=== PATIENT | male | born 1960 | race Caucasian/White ===

== ENCOUNTER → 2024-09-16 13:30 | Outpatient (CLI) | payer MEDICARE, SELFPAY | PROVIDERS: Visit Provider Student in an Organized Health Care Education/Training Program | DX: R30.0 Dysuria (principal) | CPT/HCPCS: 87086 ==

== ENCOUNTER 2024-09-16 14:31 | Emergency (ER) | payer MEDICARE, SELFPAY ==
[2024-09-16 14:53] VITALS: BP 144/74; PULSE 86; RESP 16; TEMP 36.6; O2SAT 95; BMI 37.3
--- NOTE | 2024-09-16 15:03 | PC.NURSE ---
Comes to ED reporting having trouble urinating. no prostate problems that he knows of. pt is refusing conversation of moser catheter in triage. Education has been given in regard to perforated bowel and prostate health. Pt reports he did a colon cleanse for colonoscopy last week and was refused the morning of procedure for urinary retention in which he refused catheter. Was advised he could have bowel perforation if procedure perfomred. Was DC'd AMA and told to come to ED, instead, went home. Reports he has not urinated fully in over a week. Continues to push fluids in hopes it will resolve itself. Advised there is a minimally painless way to help him feel better with lido jelly and cath placement. pt adamantly refused multiple times. States he is going to leave. advised to return if he wants help.
== END 2024-09-16 15:08 | disposition left against medical advice (07) ==
PROVIDERS: Emergency Provider Emergency Medicine; PCP Physician Assistant
DX: R33.9 Retention of urine, unspecified (principal)
CPT/HCPCS: 87086; 99281

== ENCOUNTER 2024-10-14 18:08 | Inpatient (IN) | payer MEDICARE, SELFPAY ==
[2024-10-14] VITALS (12 sets, daily range): BP systolic 133–186; BP diastolic 74–103; PULSE 91–110; RESP 16–19; TEMP 36.6; O2SAT 94–100; BMI 35.9
--- NOTE | 2024-10-14 19:48 | ED_ITS ---
HPI - Male Genitourinary General Chief complaint: Urogenital-Male Stated complaint: Bladder Leakage t-2 weeks Time Seen by Provider: 10/14/24 19:03 History of Present Illness HPI Narrative: 64 year old male with history of schizophrenia presents by EMS from home for ?leaky bladder?. Patient apparently told triage that symptoms have been going on for 2 weeks, however in the exam room patient tells me that this has been present for at least 5 weeks. He has been wearing a plastic garbage bag over his underwear as he states that he can not control his urination and feels like he can never fully void his bladder. He has not followed up with either a primary care doctor or a specialist for this problem because ?I can not go anywhere?. Denies previous history of bladder or prostate problems. Denies use of blood thinners. Related Data Home Medications Medication Instructions Recorded Confirmed benztropine 0.5 mg tablet 0.5 mg PO QDAY #0 tabs 05/13/16 olanzapine 20 mg tablet (Zyprexa) 20 mg PO HS #0 tabs 05/13/16 10/14/24 hydrochlorothiazide 25 mg tablet 25 mg PO DAILY 09/16/24 10/14/24 lovastatin 40 mg tablet 40 mg PO DAILY 09/16/24 10/14/24 venlafaxine 75 mg capsule,extended 75 mg PO DAILY 09/16/24 10/14/24 release 24 hr Allergies Allergy/AdvReac Type Severity Reaction Status Date / Time morphine [MORPHINE] Allergy Intermediate FACIAL Unverified 01/06/18 11:49 BLISTERING, FEVER Patient History Medical History No active medical problems Exam Initial Vital Signs Initial Vital Signs: Vital Signs Temperature 97.9 F 10/14/24 18:09 Pulse Rate 110 H 10/14/24 18:09 Respiratory Rate 16 10/14/24 18:09 Blood Pressure 133/84 10/14/24 18:09 Pulse Oximetry 96 10/14/24 18:09 Oxygen Delivery Method Room Air 10/14/24 18:09 Const: Awake, alert, no acute distress, appears chronically unwell Cardiac: regular rate, regular rhythm RESP: unlabored, clear bilaterally, no wheezing GI: Soft, periumbilical hernia soft. Minimal lower abdominal distension : penis normal, no hernias, no masses Skin: Warm, Dry, intact, no rashes Neuro: AO x3, CN II-XII grossly intact, moves all extremities Course Orders Ordered: ED Orders 10/14/24 19:53 CBC Auto Diff [Complete Blood Count AUTO DIFF] Stat CMP [Comprehensive Metabolic Panel] Stat 10/14/24 23:10 CT abdomen pelvis wo con Stat 10/14/24 23:33 BMP [Basic Metabolic Panel] Stat 10/15/24 01:58 HH [Hemoglobin and Hematocrit] Stat 10/15/24 02:33 UA Complete [Urinalysis and Microscopic] Stat Discontinued Medications Acetaminophen (Acetaminophen 325 Mg Tablet) 975 mg PO NOW ONE Stop: 10/14/24 23:11 Last Admin: 10/14/24 23:29 Dose: 975 mg Documented By: ELKE Fentanyl (Fentanyl 100 Mcg/2 Ml Inj) 50 mcg IV NOW ONE Stop: 10/15/24 00:15 Last Admin: 10/15/24 00:24 Dose: 50 mcg Documented By: ELKE Sodium Chloride (Normal Saline 0.9%) 1,000 mls @ 1,000 mls/hr IV BOLUS ONE Stop: 10/15/24 01:03 Last Infusion: 10/15/24 01:29 Dose: Infused Documented By: Admin: 10/15/24 00:24 Dose: 1,000 mls/hr Documented By: ELKE Lidocaine HCl (Lidocaine 2% (Glydo) 6 Ml Gel) 6 ml TOP NOW ONE Stop: 10/14/24 19:58 Last Admin: 10/14/24 20:05 Dose: 6 ml Documented By: PADMINI Vital Signs Vital signs: Vital Signs - 8 hr 10/14/24 20:28 10/14/24 20:28 10/14/24 20:30 Pulse Rate 100 H 94 H Respiratory Rate Blood Pressure 163/96 H Pulse Oximetry 99 98 Oxygen Delivery Method 10/14/24 20:30 10/14/24 21:00 10/14/24 21:00 Pulse Rate 92 H Respiratory Rate Blood Pressure 162/82 H 162/89 H Pulse Oximetry 99 Oxygen Delivery Method 10/14/24 21:30 10/14/24 21:30 10/14/24 22:00 Pulse Rate 91 H 92 H Respiratory Rate 18 Blood Pressure 167/87 H Pulse Oximetry 100 99 Oxygen Delivery Method 10/14/24 22:00 10/14/24 22:29 10/14/24 22:30 Pulse Rate 94 H Respiratory Rate Blood Pressure 186/98 H 176/103 H Pulse Oximetry 100 Oxygen Delivery Method 10/14/24 22:31 10/14/24 23:00 10/14/24 23:00 Pulse Rate 97 H 99 H Respiratory Rate 19 Blood Pressure 166/90 H Pulse Oximetry 100 99 Oxygen Delivery Method 10/14/24 23:30 10/14/24 23:43 10/14/24 23:43 Pulse Rate 99 H 99 H Respiratory Rate 18 Blood Pressure 154/74 H Pulse Oximetry 99 94 Oxygen Delivery Method Room Air 10/15/24 00:00 10/15/24 00:00 10/15/24 00:30 Pulse Rate 103 H Respiratory Rate 20 Blood Pressure 167/96 H 151/81 H Pulse Oximetry 99 Oxygen Delivery Method Room Air 10/15/24 00:30 10/15/24 01:00 10/15/24 01:00 Pulse Rate 96 H 90 Respiratory Rate 16 16 Blood Pressure 167/84 H Pulse Oximetry 98 98 Oxygen Delivery Method Room Air Room Air 10/15/24 01:30 10/15/24 01:30 Pulse Rate 98 H Respiratory Rate 16 Blood Pressure 161/84 H Pulse Oximetry 99 Oxygen Delivery Method Room Air MDM - Male Genitourinary Differential Diagnosis Differential diagnosis: Likely urinary tract infection, acute retention of urine and inguinal hernia Lab Data 10/15/24 01:58 10/14/24 23:33 Labs: Lab Results 10/14/24 10/14/24 10/15/24 Range/Units 19:53 23:33 01:58 WBC 8.4 (4.5-11.0) X10^3/uL RBC 4.58 (4.5-5.9) X10^6/uL Hgb 14.3 13.3 L (13.5-17.5) g/dL Hct 41.5 39.4 L (41-53) % MCV 90.7 (80-100) fL MCH 31.2 (26-34) PG MCHC 34.4 (30-36) % RDW 13.7 (11.6-14.8) % Plt Count 251 (150-400) X10^3/uL Neut % (Auto) 75.5 H (50-75) % Lymph % (Auto) 12.6 L (25-40) % [place] % (Auto) 10.2 (3-14) % Eos % (Auto) 0.9 L (2-4) % Baso % (Auto) 0.8 (0-2) % Neut # (Auto) 6300 (0792-3608) /uL Lymph # (Auto) 1100 (3830-6577) /uL [place] # (Auto) 900 (0-900) /uL Eos # (Auto) 100 (0-450) /uL Baso # (Auto) 100 (0-100) /uL Sodium 138 136 L (137-145) mmol/L Potassium 4.5 4.0 (3.4-5.1) mmol/L Chloride 102 103 (98-107) mmol/L Carbon Dioxide 26 26 (22-32) mmol/L BUN 69 H 61 H (9-20) mg/dL Creatinine 2.72 H 2.16 H (0.66-1.25) mg/dL Estimated GFR 25 L 33 L (>60) mL/min BUN/Creatinine Ratio 25.4 H 28.2 H (6-22) Glucose 117 H 117 H (80-110) mg/dL Calcium 9.4 9.1 (8.4-10.2) mg/dL Total Bilirubin 0.5 (0.2-1.3) mg/dL AST 30 (17-59) IU/L ALT 26 (<50) IU/L Alkaline Phosphatase 122 (38-126) U/L Total Protein 8.4 H (6.3-8.2) g/dL Albumin 4.5 (3.5-5.0) g/dL Globulin 3.9 (1.7-4.1) g/dL Albumin/Globulin Ratio 1.2 (1.0-2.8) Imaging Data CT scan - abdomen/pelvis: Radiologist's Impression: PROCEDURE: CT ABDOMEN PELVIS WO CON INDICATIONS: HEMATURIA, URINARY RETENTION TECHNIQUE: Axial sections were acquired from the lung bases to the pubic symphysis. Coronal and sagittal reformats were performed. For radiation dose reduction, the following was used: automated exposure control, adjustment of mA and/or kV according to patient size. COMPARISON: None. FINDINGS: Image quality: Diagnostic. Lower Chest: Lung bases are clear. Small hiatal hernia. Heart size is normal. URINARY: Kidney/ureter: There is mild bilateral hydronephrosis and hydroureter without significant periureteral perinephric stranding. No distal obstructing stone. No renal stones identified. There is a 1.9 cm right renal cyst. Bladder: Urinary bladder is decompressed by Tyler catheter. Locules of air in the anti dependent portions of the urinary bladder likely from Tyler catheter placement. There is mild circumferential wall thickening of the urinary bladder more pronounced than expected for degree of decompression. Mild perivesicular stranding. The prostate gland appears mildly enlarged. ABDOMEN: Liver: No contour-deforming solid mass. Gallbladder: No radiopaque gallstones or wall thickening. Biliary ducts: No biliary dilation. Pancreas: No ductal dilation. Spleen: Size is within normal limits. Adrenal Glands: No discrete adrenal nodules. Stomach and Bowel: Normal colonic caliber, without significant wall thickening. No evidence for small bowel obstruction or associated inflammatory changes. Normal appendix. Peritoneum: No abnormal intraperitoneal fluid. No free air. Ventral Wall: There is a moderate-sized umbilical hernia measuring approximately 3.7 cm at the neck. Hernia contains segment of small bowel and peritoneal fat without evidence for obstruction proximally or acute inflammatory changes. Abdominal Nodes: No enlarged retroperitoneal or mesenteric lymph nodes. Vessels: Aorta and inferior vena cava are normal in size. Atherosclerotic calcifications. PELVIS: Pelvic Organs: Mild prostatomegaly. Pelvic Nodes: Unremarkable. Miscellaneous: No inguinal hernias are seen. Bones: No acute vertebral body compression fractures. Multilevel spondylitic changes throughout the imaged spine. No suspicious osseous lesions. IMPRESSION: Mild bilateral hydroureteronephrosis without significant perinephric or periureteral stranding. No evidence for distal obstructing stones or mass lesions. The urinary bladder is decompressed by Tyler catheter with greater than expected circumferential urinary bladder wall thickening for degree of bladder distension. There is also mild perivesicular stranding. Air within the urinary bladder likely from Tyler catheter placement. Overall, findings may represent cystitis versus sequela of chronic urinary bladder outlet obstruction syndrome. Fat and small bowel containing umbilical hernia without evidence for acute inflammatory changes or obstruction proximally. Other chronic findings as above. Dictated by: Demarcus Whalen M.D. on 10/14/2024 at 23:49 Approved by: Demarcus Whalen M.D. on 10/14/2024 at 23:58 MDM Narrative Medical decision making narrative: Nontoxic patient presenting for urinary retention, accounts very in chronicity, but this has been going on for at least several weeks per patient report. Abdomen mildly distended, nontender to palpation. Laboratory work is reviewed, WBC count 8.4, hemoglobin 14.3, platelet count 251, sodium 138, potassium 4.5, creatinine 2.72, normal liver enzymes. There are no recent priors for comparison, last blood work on file does not include a creatinine and it was from the year 2019. Nursing staff informed me that while initial urine output was 2L of clear and yellow patient began to have bleeding with clots present. Despite several irrigation attempts the urine remained dark red. Three-way Tyler ordered for irrigation and CT ordered for assessment. Repeat creatinine after drainage of urine shows improvement. Patient not acidotic at this time. CT notable for findings consistent with cystitis versus sequela of chronic urinary bladder outlet obstruction syndrome. With the volume of urine drained from the bladder suspect chronic outlet obstruction syndrome. Despite 3 x 3 L irrigation bags of sterile water patient still has reddish urine coming out. Case discussed with Dr. Talavera of Urology, who states that this is commonly seen after chronic retention and is due to microvascular petechiae from an over stretch bladder. This normally resolves after a short course of irrigation and does not need transfer. Case discussed with Dr. Leach of telehospitalist services, who will admit patient for further treatment. Discharge Plan Departure Patient Disposition: Admitted as Observation Clinical Impression: Acute retention of urine Prescriptions: No Action hydrochlorothiazide 25 mg tablet 25 mg PO DAILY venlafaxine 75 mg capsule,extended release 24hr 75 mg PO DAILY lovastatin 40 mg tablet 40 mg PO DAILY olanzapine [Zyprexa] 20 MG tablet 20 mg PO HS Qty: 0 benztropine 0.5 MG tablet 0.5 mg PO QDAY Qty: 0 Referrals: Lulu Zamarripa PA-C [Primary Care Provider] - Admit Date/Time: 10/15/24 02:35 Admit Provider: Gilmer Hanna
[2024-10-14 20:01] LABS: Add Manual Diff / Slide Review NO; Basophils Absolute Auto 100 /uL (0-100); Basophils Percent Auto 0.8 % (0-2); Eosinophils Absolute Auto 100 /uL (0-450); Eosinophils Percent Auto 0.9 % (2-4); Hematocrit 41.5 % (41-53); Hemoglobin 14.3 g/dL (13.5-17.5); Lymphocytes Absolute Auto 1100 /uL (1100-4500); Lymphocytes Percent Auto 12.6 % (25-40); Mean Corpuscular HGB Conc 34.4 % (30-36); Mean Corpuscular Hemoglobin 31.2 PG (26-34); Mean Corpuscular Volume 90.7 fL (80-100); Monocytes Absolute Auto 900 /uL (0-900); Monocytes Percent Auto 10.2 % (3-14); Neutrophils Absolute Auto 6300 /uL (1500-7000); Neutrophils Percent Auto 75.5 % (50-75); Platelet Count 251 X10^3/uL (150-400); Red Blood Cell Count 4.58 X10^6/uL (4.5-5.9); Red Cell Distribution Width 13.7 % (11.6-14.8); White Blood Cell Count 8.4 X10^3/uL (4.5-11.0)
[2024-10-14] MEDS: LIDOCAINE 2% (GLYDO) 6 ML GEL TOP (20:05)
[2024-10-14 20:16] LABS: Alanine Aminotransferase 26 IU/L (<50); Albumin 4.5 g/dL (3.5-5.0); Albumin Globulin Ratio 1.2 (1.0-2.8); Alkaline Phosphatase 122 U/L (38-126); Aspartate Aminotransferase 30 IU/L (17-59); BUN Creatinine Ratio 25.4 (6-22); Bilirubin Total 0.5 mg/dL (0.2-1.3); Blood Urea Nitrogen 69 mg/dL (9-20); Calcium 9.4 mg/dL (8.4-10.2); Carbon Dioxide 26 mmol/L (22-32); Chloride 102 mmol/L (98-107); Estimated Glomerular Filt Rate 25 mL/min (>60); Globulin 3.9 g/dL (1.7-4.1); Glucose 117 mg/dL (80-110); HEMOLYSIS < 15 (0-50); Potassium 4.5 mmol/L (3.4-5.1); Sodium 138 mmol/L (137-145); Total Protein 8.4 g/dL (6.3-8.2)
--- NOTE | 2024-10-14 20:35 | PC.NURSE ---
Patient here in department because they have been unable to pee besides a dribble for the past two weeks. bladder scanned patient and found their to be >999cc, got verbal order from Dr Summers to place moser catheter. Catheter placed successfully, patient handled well, drained 2000cc within couple minutes, clamped the moser catheter to avoid hypotension. Patient was also complaining of intense cramping. blood pressure maintained at 162/82
--- NOTE | 2024-10-14 21:30 | PC.NURSE ---
Some blood was noted in the urine and catheter was no longer draining, Dr Summers okayed some irrigation. Instilled around 200cc and got 200cc out, small blood clots noted in the urine. Patient reports theyre having pain in my penis
--- NOTE | 2024-10-14 23:10 | DI.CT.S_ITS ---
PROCEDURE: CT ABDOMEN PELVIS WO CON INDICATIONS: HEMATURIA, URINARY RETENTION TECHNIQUE: Axial sections were acquired from the lung bases to the pubic symphysis. Coronal and sagittal reformats were performed. For radiation dose reduction, the following was used: automated exposure control, adjustment of mA and/or kV according to patient size. COMPARISON: None. FINDINGS: Image quality: Diagnostic. Lower Chest: Lung bases are clear. Small hiatal hernia. Heart size is normal. URINARY: Kidney/ureter: There is mild bilateral hydronephrosis and hydroureter without significant periureteral perinephric stranding. No distal obstructing stone. No renal stones identified. There is a 1.9 cm right renal cyst. Bladder: Urinary bladder is decompressed by Tyler catheter. Locules of air in the anti dependent portions of the urinary bladder likely from Tyler catheter placement. There is mild circumferential wall thickening of the urinary bladder more pronounced than expected for degree of decompression. Mild perivesicular stranding. The prostate gland appears mildly enlarged. ABDOMEN: Liver: No contour-deforming solid mass. Gallbladder: No radiopaque gallstones or wall thickening. Biliary ducts: No biliary dilation. Pancreas: No ductal dilation. Spleen: Size is within normal limits. Adrenal Glands: No discrete adrenal nodules. Stomach and Bowel: Normal colonic caliber, without significant wall thickening. No evidence for small bowel obstruction or associated inflammatory changes. Normal appendix. Peritoneum: No abnormal intraperitoneal fluid. No free air. Ventral Wall: There is a moderate-sized umbilical hernia measuring approximately 3.7 cm at the neck. Hernia contains segment of small bowel and peritoneal fat without evidence for obstruction proximally or acute inflammatory changes. Abdominal Nodes: No enlarged retroperitoneal or mesenteric lymph nodes. Vessels: Aorta and inferior vena cava are normal in size. Atherosclerotic calcifications. PELVIS: Pelvic Organs: Mild prostatomegaly. Pelvic Nodes: Unremarkable. Miscellaneous: No inguinal hernias are seen. Bones: No acute vertebral body compression fractures. Multilevel spondylitic changes throughout the imaged spine. No suspicious osseous lesions. IMPRESSION: Mild bilateral hydroureteronephrosis without significant perinephric or periureteral stranding. No evidence for distal obstructing stones or mass lesions. The urinary bladder is decompressed by Tyler catheter with greater than expected circumferential urinary bladder wall thickening for degree of bladder distension. There is also mild perivesicular stranding. Air within the urinary bladder likely from Tyler catheter placement. Overall, findings may represent cystitis versus sequela of chronic urinary bladder outlet obstruction syndrome. Fat and small bowel containing umbilical hernia without evidence for acute inflammatory changes or obstruction proximally. Other chronic findings as above. Dictated by: Demarcus Whalen M.D. on 10/14/2024 at 23:49 Approved by: Demarcus Whalen M.D. on 10/14/2024 at 23:58
[2024-10-14] MEDS: ACETAMINOPHEN 325 MG TABLET 975 MG PO (23:29)
--- NOTE | 2024-10-14 23:34 | PC.NURSE ---
Labs drawn from existing IV line without complication. Pt taken to imaging via ED stretcher with technician support association.
[2024-10-14 23:49] LABS: BUN Creatinine Ratio 28.2 (6-22); Blood Urea Nitrogen 61 mg/dL (9-20); Calcium 9.1 mg/dL (8.4-10.2); Carbon Dioxide 26 mmol/L (22-32); Chloride 103 mmol/L (98-107); Estimated Glomerular Filt Rate 33 mL/min (>60); Glucose 117 mg/dL (80-110); HEMOLYSIS 31 (0-50); Sodium 136 mmol/L (137-145)
[2024-10-15] VITALS (11 sets, daily range): BP systolic 112–167; BP diastolic 46–100; PULSE 90–104; RESP 16–20; TEMP 36.4–36.7; O2SAT 97–99; BMI 35.9
--- NOTE | 2024-10-15 00:15 | PC.NURSE ---
Change of indwelling urinary catheter d/t need for CBI. Difficult catheter insertion completed by Dr. Summers. CBI started at this time.
[2024-10-15] MEDS: SODIUM CHLORIDE 0.9% 1,000 ML 1000 ML IV (00:24)
[2024-10-15] MEDS: fentaNYL 100 MCG/2 ML INJ 50 MCG IV (00:24)
--- NOTE | 2024-10-15 01:47 | PC.NURSE ---
Indwelling urinary catheter drainage remains dark pink with clots. CBI clamped at this time per Dr. Summers.
--- NOTE | 2024-10-15 01:59 | PC.NURSE ---
Repeat H&H drawn from existing IV line without difficulty.
[2024-10-15 02:04] LABS: Hematocrit 39.4 % (41-53); Hemoglobin 13.3 g/dL (13.5-17.5)
--- NOTE | 2024-10-15 02:14 | PC.NURSE ---
Small amount of dark red urine noted in catheter tubing at this time. CBI restarted with clamp at 09/29 causing a medium drip irrigation. Pt coughed and a large clot empied into catheter tubing followed by dark red urine. Dr. Summers made aware.
--- NOTE | 2024-10-15 03:05 | P.HP_ITS ---
History of Present Illness History of Present Illness Date Patient Seen: 10/15/24 Chief complaint: Difficulty voiding, urine incontinence Narrative: 64 y/o with PMH of schizophrenia, on Zyprexa and Effexor, HTN - on HCTZ and HLD - on statin, who came to ED with evidence of chronic bladder outlet obstruction. He has difficulty voiding since few weeks or even months ago and lately he developed overflow incontinence. CT showing b/l mild hydronephrosis. After placed Tyler and bladder decompression by draining 2 L of urine, he developed bleed from overly stretched bladder vessels. Started irrigation in the ER, discussed with urology at , postdecompression bleed that should subside, no need for transfer. Labs with NETO. Without evidence of UTI. Placed in observation for post-decompressive hematuria. Once cleared he can discharge with Tyler with scheduled urology follow up [facility] Medical History No active medical problems Meds Home Medications and Allergies Home Medications Medication Instructions Recorded Confirmed Type olanzapine 20 mg tablet (Zyprexa) 20 mg PO HS #0 tabs 05/13/16 10/14/24 History hydrochlorothiazide 25 mg tablet 25 mg PO DAILY 09/16/24 10/14/24 History lovastatin 40 mg tablet 40 mg PO DAILY 09/16/24 10/14/24 History venlafaxine 75 mg capsule,extended 75 mg PO DAILY 09/16/24 10/14/24 History release 24 hr Allergies Allergy/AdvReac Type Severity Reaction Status Date / Time morphine [MORPHINE] Allergy Intermediate FACIAL Verified 10/15/24 03:46 BLISTERING, FEVER Review of Systems Review of Systems Narrative: no chills or fever Genitourinary Comments: lower abdominal pain, difficulty voiding, incontinence Psychiatric Comments: w/o delusional thoughts or hallucinations Hematologic/Lymphatic Comments: hematuria Exam Vital Signs (past 8 hours): - 10/14/24 20:28 10/14/24 20:28 10/14/24 20:30 Pulse Rate 100 H 94 H Respiratory Rate Blood Pressure 163/96 H Pulse Oximetry 99 98 Oxygen Delivery Method 10/14/24 20:30 10/14/24 21:00 10/14/24 21:00 Pulse Rate 92 H Respiratory Rate Blood Pressure 162/82 H 162/89 H Pulse Oximetry 99 Oxygen Delivery Method 10/14/24 21:30 10/14/24 21:30 10/14/24 22:00 Pulse Rate 91 H 92 H Respiratory Rate 18 Blood Pressure 167/87 H Pulse Oximetry 100 99 Oxygen Delivery Method 10/14/24 22:00 10/14/24 22:29 10/14/24 22:30 Pulse Rate 94 H Respiratory Rate Blood Pressure 186/98 H 176/103 H Pulse Oximetry 100 Oxygen Delivery Method 10/14/24 22:31 10/14/24 23:00 10/14/24 23:00 Pulse Rate 97 H 99 H Respiratory Rate 19 Blood Pressure 166/90 H Pulse Oximetry 100 99 Oxygen Delivery Method 10/14/24 23:30 10/14/24 23:43 10/14/24 23:43 Pulse Rate 99 H 99 H Respiratory Rate 18 Blood Pressure 154/74 H Pulse Oximetry 99 94 Oxygen Delivery Method Room Air 10/15/24 00:00 10/15/24 00:00 10/15/24 00:30 Pulse Rate 103 H Respiratory Rate 20 Blood Pressure 167/96 H 151/81 H Pulse Oximetry 99 Oxygen Delivery Method Room Air 10/15/24 00:30 10/15/24 01:00 10/15/24 01:00 Pulse Rate 96 H 90 Respiratory Rate 16 16 Blood Pressure 167/84 H Pulse Oximetry 98 98 Oxygen Delivery Method Room Air Room Air 10/15/24 01:30 10/15/24 01:30 10/15/24 02:00 Pulse Rate 98 H 94 H Respiratory Rate 16 Blood Pressure 161/84 H Pulse Oximetry 99 97 Oxygen Delivery Method Room Air 10/15/24 02:00 10/15/24 02:30 10/15/24 02:30 Pulse Rate 95 H Respiratory Rate Blood Pressure 166/90 H 154/87 H Pulse Oximetry 97 Oxygen Delivery Method Room Air Oxygen Delivery Method Room Air Const Other: in no distress HENMT Other: normocephalic Resp Other: normal respiratory effort Cardio Other: RRR GI Other: obese abdomen, suprapubic tenderness Skin Other: w/o rashes Neuro Other: w/o deficits Psych Other: lucid Objective Labs 10/15/24 01:58 10/14/24 23:33 Labs: Laboratory Results - last 24 hr 10/14/24 10/14/24 10/15/24 19:53 23:33 01:58 WBC 8.4 RBC 4.58 Hgb 14.3 13.3 L Hct 41.5 39.4 L MCV 90.7 MCH 31.2 MCHC 34.4 RDW 13.7 Plt Count 251 Neut % (Auto) 75.5 H Lymph % (Auto) 12.6 L [place] % (Auto) 10.2 Eos % (Auto) 0.9 L Baso % (Auto) 0.8 Neut # (Auto) 6300 Lymph # (Auto) 1100 [place] # (Auto) 900 Eos # (Auto) 100 Baso # (Auto) 100 Sodium 138 136 L Potassium 4.5 4.0 Chloride 102 103 Carbon Dioxide 26 26 BUN 69 H 61 H Creatinine 2.72 H 2.16 H Estimated GFR 25 L 33 L BUN/Creatinine Ratio 25.4 H 28.2 H Glucose 117 H 117 H Calcium 9.4 9.1 Total Bilirubin 0.5 AST 30 ALT 26 Alkaline Phosphatase 122 Total Protein 8.4 H Albumin 4.5 Globulin 3.9 Albumin/Globulin Ratio 1.2 Assessment & Plan Assessment and plan (1) Bladder outlet obstruction: Status: Acute (2) NETO (acute kidney injury): Status: Acute (3) Schizophrenia: Status: Acute (4) HTN (hypertension): Status: Acute (5) HLD (hyperlipidemia): Status: Acute Assessment & Plan narrative: Chronic Bladder Outlet Obstruction - Tyler - urology follow up Post-decomporessive hematuria - observation for bladder irrigation NETO - NS, another liter. Had 1 in ED. - BMP followed D[facility] - continue home Zyprexa and Effexor HLD - statin HTN - holding HCTZ for NETO - restart on DVT prophylaxis - SCDs Time-Based Coding :: [TOTAL MINUTES] spent with patient and on the chart (including review of chart, obtaining history, exam, reviewing outside data, placing orders, documenting exam and treatment plan, and counseling patient) on [DATE].
[2024-10-15] MEDS: OXYCODONE IR 10 MG TABLET PO ×2 (04:16→07:31)
[2024-10-15] MEDS: SODIUM CHLORIDE 0.9% 1,000 ML 100 ML IV ×3 (04:19→22:35)
[2024-10-15] MEDS: OLANZapine 2.5 MG TABLET 20 MG PO ×2 (04:19→20:48)
[2024-10-15 06:33] LABS: Add Manual Diff / Slide Review NO; Basophils Absolute Auto 100 /uL (0-100); Basophils Percent Auto 0.9 % (0-2); Eosinophils Absolute Auto 100 /uL (0-450); Eosinophils Percent Auto 1.3 % (2-4); Hematocrit 40.4 % (41-53); Hemoglobin 13.8 g/dL (13.5-17.5); Lymphocytes Absolute Auto 1200 /uL (1100-4500); Lymphocytes Percent Auto 11.9 % (25-40); Mean Corpuscular HGB Conc 34.2 % (30-36); Mean Corpuscular Hemoglobin 30.9 PG (26-34); Mean Corpuscular Volume 90.3 fL (80-100); Monocytes Absolute Auto 1200 /uL (0-900); Monocytes Percent Auto 11.6 % (3-14); Neutrophils Absolute Auto 7700 /uL (1500-7000); Neutrophils Percent Auto 74.3 % (50-75); Platelet Count 237 X10^3/uL (150-400); Red Blood Cell Count 4.48 X10^6/uL (4.5-5.9); Red Cell Distribution Width 14.1 % (11.6-14.8); White Blood Cell Count 10.4 X10^3/uL (4.5-11.0)
[2024-10-15 07:04] LABS: BUN Creatinine Ratio 31.4 (6-22); Blood Urea Nitrogen 50 mg/dL (9-20); Calcium 8.4 mg/dL (8.4-10.2); Carbon Dioxide 21 mmol/L (22-32); Chloride 106 mmol/L (98-107); Estimated Glomerular Filt Rate 48 mL/min (>60); Glucose 135 mg/dL (80-110); HEMOLYSIS < 15 (0-50); Potassium 3.9 mmol/L (3.4-5.1); Sodium 135 mmol/L (137-145)
--- NOTE | 2024-10-15 07:09 | PM.PN.1 ---
Subjective Subjective Date Patient Seen: 10/15/24 Interval history: He is seen today to follow-up his bladder outlet obstruction and gross hematuria after Tyler catheter insertion. The urine continues to be pink. 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 He thinks that his bladder problem developed because ?I drank too much water. ? His blood pressure is 152/100. The white count is 10.4 with a hemoglobin of 13.8. The liver enzymes are normal. Exam Vital Signs (past 8 hours): - 10/14/24 23:30 10/14/24 23:43 10/14/24 23:43 Temperature Pulse Rate 99 H 99 H Respiratory Rate 18 Blood Pressure 154/74 H Pulse Oximetry 99 94 Oxygen Delivery Method Room Air Oxygen Flow Rate 10/15/24 00:00 10/15/24 00:00 10/15/24 00:30 Temperature Pulse Rate 103 H Respiratory Rate 20 Blood Pressure 167/96 H 151/81 H Pulse Oximetry 99 Oxygen Delivery Method Room Air Oxygen Flow Rate 10/15/24 00:30 10/15/24 01:00 10/15/24 01:00 Temperature Pulse Rate 96 H 90 Respiratory Rate 16 16 Blood Pressure 167/84 H Pulse Oximetry 98 98 Oxygen Delivery Method Room Air Room Air Oxygen Flow Rate 10/15/24 01:30 10/15/24 01:30 10/15/24 02:00 Temperature Pulse Rate 98 H 94 H Respiratory Rate 16 Blood Pressure 161/84 H Pulse Oximetry 99 97 Oxygen Delivery Method Room Air Oxygen Flow Rate 10/15/24 02:00 10/15/24 02:30 10/15/24 02:30 Temperature Pulse Rate 95 H Respiratory Rate Blood Pressure 166/90 H 154/87 H Pulse Oximetry 97 Oxygen Delivery Method Room Air Oxygen Flow Rate 10/15/24 03:05 Temperature 98.1 F Pulse Rate 103 H Respiratory Rate 16 Blood Pressure 152/100 H Pulse Oximetry 97 Oxygen Delivery Method Oxygen Flow Rate 0 Oxygen Delivery Method Room Air Oxygen Flow Rate 0 Narrative Exam Narrative: Alert and oriented x3. No apparent distress Tyler catheter irrigation in place with pink urine Heart is regular rate and rhythm without murmur Lungs are clear to auscultation bilaterally Extremities have no ankle edema There are no abdominal masses. Objective Labs 10/15/24 06:27 10/15/24 06:27 Labs: Laboratory Results - last 24 hr 10/14/24 10/14/24 10/15/24 19:53 23:33 01:58 WBC 8.4 RBC 4.58 Hgb 14.3 13.3 L Hct 41.5 39.4 L MCV 90.7 MCH 31.2 MCHC 34.4 RDW 13.7 Plt Count 251 Neut % (Auto) 75.5 H Lymph % (Auto) 12.6 L Mck[place]ley % (Auto) 10.2 Eos % (Auto) 0.9 L Baso % (Auto) 0.8 Neut # (Auto) 6300 Lymph # (Auto) 1100 [place] # (Auto) 900 Eos # (Auto) 100 Baso # (Auto) 100 Sodium 138 136 L Potassium 4.5 4.0 Chloride 102 103 Carbon Dioxide 26 26 BUN 69 H 61 H Creatinine 2.72 H 2.16 H Estimated GFR 25 L 33 L BUN/Creatinine Ratio 25.4 H 28.2 H Glucose 117 H 117 H Calcium 9.4 9.1 Total Bilirubin 0.5 AST 30 ALT 26 Alkaline Phosphatase 122 Total Protein 8.4 H Albumin 4.5 Globulin 3.9 Albumin/Globulin Ratio 1.2 10/15/24 06:27 WBC 10.4 RBC 4.48 L Hgb 13.8 Hct 40.4 L MCV 90.3 MCH 30.9 MCHC 34.2 RDW 14.1 Plt Count 237 Neut % (Auto) 74.3 Lymph % (Auto) 11.9 L Mck[place] % (Auto) 11.6 Eos % (Auto) 1.3 L Baso % (Auto) 0.9 Neut # (Auto) 7700 H Lymph # (Auto) 1200 Mck[place] # (Auto) 1200 H Eos # (Auto) 100 Baso # (Auto) 100 Sodium Potassium Chloride Carbon Dioxide BUN Creatinine Estimated GFR BUN/Creatinine Ratio Glucose Calcium Total Bilirubin AST ALT Alkaline Phosphatase Total Protein Albumin Globulin Albumin/Globulin Ratio [facility] Medical History No active medical problems Social History household members: none Smoking Status: Former smoker alcohol intake: never Assessment & Plan Assessment & Plan narrative: Chronic Bladder Outlet Obstruction - Tyler - Flomax - urology follow up Post-decomporessive hematuria - observation for bladder irrigation - discharge home with catheter and Urology follow-up once the visible bleeding stops. NETO - NS, another liter. Had 1 in ED. - BMP followed SCHIZOPHRENIA - continue home Zyprexa and Effexor HLD - statin HTN - holding HCTZ for NETO - restart on DVT prophylaxis - SCDs Time-Based Coding :: [TOTAL MINUTES] spent with patient and on the chart (including review of chart, obtaining history, exam, reviewing outside data, placing orders, documenting exam and treatment plan, and counseling patient) on [DATE].
[2024-10-15] MEDS: ACETAMINOPHEN 325 MG TABLET 650 MG PO ×2 (07:31→18:59)
[2024-10-15] MEDS: ATORVASTATIN 20 MG TABLET 10 MG PO (09:16)
[2024-10-15] MEDS: VENLAFAXINE ER 75 MG CAP PO (09:16)
[2024-10-15] MEDS: TAMSULOSIN 0.4 MG CAPSULE PO (12:29)
[2024-10-15] MEDS: OXYCODONE IR 5 MG TABLET PO ×2 (12:31→18:59)
--- NOTE | 2024-10-15 13:37 | CM.DANOTE ---
B DCP Assessment note pt is a 64yo M here with difficulty voiding/urinary incontinence. Moser catheter was inserted, developed bloody urine, post-decompressive hematuria. PCP Lulu Zamarripa (Avi Hernandez?) Payer [facility] and self pay SALES PROMOTION COORDINATOR reviewed EMR. PMH of schizophrenia, reported as stable with home meds zyprexa and effexor. Per chart review, disabled. Per H&P, pt can dc home once moser urine output is clear and f/u with OP urology. Per RN, urine remains bloody after constant irrigation at this point today. Per RN, kidney fx improved but not optimal at this point. Per chart, only emergency contact is listed as his brother, Jourdan ([phone]) (local?) Per provider in morning rounds, estimate pt will be here for a few days. UR RN met with pt in room. Pt somnolent during interaction, reports not having a good night of sleep last night. told UR RN that he lives home alone in appt in [place]. reports his appt is a mess. reports his truck does not work at this time. local family but they work. pt does not want HH. Per UR RN, pt fell back asleep before more information was able to be obtained. Per RN, unclear if/how pt will be able to manage new catheter at home/unclear how he manages OP appts independently. SALES PROMOTION COORDINATOR unable to meet with pt further today due to triaging needs. P: anticipate home with moser catheter/OP f/u in a few days/when medically stable.. CM team will continue to follow for concerns with pt to manage needs in OP setting. LANCE Saucedo Discharge Planning/Care Management CM Discharge Assessment Start: 10/15/24 13:35 Freq: Status: Active Protocol: Document 10/15/24 13:36 RENEE (Rec: 10/15/24 13:37 [id number]) Discharge Planning Assessment Assigned Rivet Sticker LANCE Prescott DPOA/Assigned Designee Name brother Soliman Contact Information [phone] Advance Directives? Yes Advance Directives on File No History Provided By Patient Prior Living Arrangements Apartment/Condo Household Members none Comment pt reports his truck is broken Independent with ADL's Yes Is patient alert and oriented? Yes Discharge Plan Home Referrals Initiated None needed Review Status In Process Please Provide Date Initial DC 10/15/24 Assessment Was Performed Next Review Type Continued Stay Review
[2024-10-16] VITALS: BP 128/75; PULSE 102; TEMP 36.7; O2SAT 98
[2024-10-16 04:00] VITALS: BP 145/86; PULSE 107; RESP 16; TEMP 36.7; O2SAT 97
[2024-10-16 06:25] LABS: Hematocrit 36.8 % (41-53); Hemoglobin 12.5 g/dL (13.5-17.5); Mean Corpuscular HGB Conc 34.1 % (30-36); Mean Corpuscular Hemoglobin 30.7 PG (26-34); Platelet Count 216 X10^3/uL (150-400); Red Blood Cell Count 4.09 X10^6/uL (4.5-5.9); Red Cell Distribution Width 14.2 % (11.6-14.8)
[2024-10-16 06:38] LABS: BUN Creatinine Ratio 20.7 (6-22); Blood Urea Nitrogen 23 mg/dL (9-20); Calcium 7.9 mg/dL (8.4-10.2); Carbon Dioxide 25 mmol/L (22-32); Chloride 105 mmol/L (98-107); Estimated Glomerular Filt Rate > 60 mL/min (>60); Glucose 125 mg/dL (80-110); HEMOLYSIS < 15 (0-50); Sodium 134 mmol/L (137-145)
--- NOTE | 2024-10-16 07:31 | PM.PN.1 ---
Subjective Subjective Date Patient Seen: 10/16/24 Interval history: He is seen today to follow-up the gross hematuria, bladder outlet obstruction and schizophrenia. His CBC and BMP are normal today. He continues with pink clear urine. He says that his bladder feels tender. His heart rate is 107 with a blood pressure 145/86. Unfortunately no actual UA or urine culture was done. Exam Vital Signs (past 8 hours): - 10/16/24 00:00 10/16/24 04:00 Temperature 98.0 F 98.1 F Pulse Rate 102 H 107 H Respiratory Rate 16 Blood Pressure 128/75 145/86 H Pulse Oximetry 98 97 Oxygen Flow Rate 0 0 Oxygen Delivery Method Room Air Oxygen Flow Rate 0 Narrative Exam Narrative: Alert and oriented x3. No apparent distress. Heart is regular rate and rhythm without murmur Lungs are clear to auscultation bilaterally Extremities have no ankle edema. Tyler catheter present with pink urine. No bladder area abdominal tenderness. Objective Labs 10/16/24 05:40 10/16/24 05:40 Labs: Laboratory Results - last 24 hr 10/16/24 05:40 WBC 11.0 RBC 4.09 L Hgb 12.5 L Hct 36.8 L MCV 90.0 MCH 30.7 MCHC 34.1 RDW 14.2 Plt Count 216 Sodium 134 L Potassium 4.0 Chloride 105 Carbon Dioxide 25 BUN 23 H Creatinine 1.11 Estimated GFR > 60 BUN/Creatinine Ratio 20.7 Glucose 125 H Calcium 7.9 L PFSH Medical History No active medical problems Social History household members: none Smoking Status: Former smoker alcohol intake: never Assessment & Plan Assessment & Plan narrative: Chronic Bladder Outlet Obstruction - Tyler - Flomax - Order UA/UC - urology follow up Post-decomporessive hematuria - observation for bladder irrigation - discharge home with catheter and Urology follow-up once the visible bleeding stops. - UA/UC NETO - resolved with IVF SCHIZOPHRENIA - continue home Zyprexa and Effexor HLD - statin HTN - holding HCTZ for NETO - restart on DVT prophylaxis - SCDs Time-Based Coding :: [TOTAL MINUTES] spent with patient and on the chart (including review of chart, obtaining history, exam, reviewing outside data, placing orders, documenting exam and treatment plan, and counseling patient) on [DATE].
[2024-10-16 08:39] VITALS: BP 132/86; PULSE 108; RESP 19; TEMP 36.9; O2SAT 97
[2024-10-16] MEDS: TAMSULOSIN 0.4 MG CAPSULE PO (08:40)
[2024-10-16] MEDS: VENLAFAXINE ER 75 MG CAP PO (08:40)
[2024-10-16] MEDS: ATORVASTATIN 20 MG TABLET 10 MG PO (08:40)
[2024-10-16] MEDS: SODIUM CHLORIDE 0.9% 1,000 ML 100 ML IV ×2 (09:00→21:53)
[2024-10-16 12:11] VITALS: BP 110/72; PULSE 106; RESP 20; TEMP 36.8; O2SAT 96
[2024-10-16] MEDS: OXYCODONE IR 5 MG TABLET PO ×2 (12:56→19:39)
[2024-10-16 18:01] VITALS: BP 137/77; PULSE 100; RESP 19; TEMP 36.3; O2SAT 98
[2024-10-16] MEDS: polyethylene glycoL 3350 17 GM POWD.PACK PO (19:39)
[2024-10-16 20:00] VITALS: BP 144/80; PULSE 104; RESP 16; TEMP 36.6; O2SAT 99
[2024-10-16] MEDS: OLANZapine 2.5 MG TABLET 20 MG PO (20:17)
[2024-10-16] MEDS: ACETAMINOPHEN 325 MG TABLET 650 MG PO (22:21)
[2024-10-17] VITALS: BP 130/85; PULSE 104; TEMP 36.9; O2SAT 98
[2024-10-17 04:00] VITALS: BP 135/84; PULSE 105; RESP 12; TEMP 36.6; O2SAT 95
[2024-10-17 06:02] LABS: Add Manual Diff / Slide Review NO; Basophils Absolute Auto 100 /uL (0-100); Basophils Percent Auto 1.1 % (0-2); Eosinophils Absolute Auto 400 /uL (0-450); Eosinophils Percent Auto 4.4 % (2-4); Hemoglobin 11.4 g/dL (13.5-17.5); Lymphocytes Absolute Auto 1500 /uL (1100-4500); Lymphocytes Percent Auto 15.4 % (25-40); Mean Corpuscular HGB Conc 34.5 % (30-36); Mean Corpuscular Hemoglobin 31.3 PG (26-34); Mean Corpuscular Volume 90.8 fL (80-100); Monocytes Absolute Auto 1100 /uL (0-900); Monocytes Percent Auto 11.1 % (3-14); Neutrophils Absolute Auto 6600 /uL (1500-7000); Platelet Count 193 X10^3/uL (150-400); Red Blood Cell Count 3.63 X10^6/uL (4.5-5.9); White Blood Cell Count 9.8 X10^3/uL (4.5-11.0)
[2024-10-17 06:17] LABS: BUN Creatinine Ratio 17.5 (6-22); Blood Urea Nitrogen 20 mg/dL (9-20); Calcium 7.9 mg/dL (8.4-10.2); Carbon Dioxide 27 mmol/L (22-32); Chloride 106 mmol/L (98-107); Estimated Glomerular Filt Rate > 60 mL/min (>60); Glucose 120 mg/dL (80-110); HEMOLYSIS < 15 (0-50); Potassium 4.4 mmol/L (3.4-5.1); Sodium 136 mmol/L (137-145)
--- NOTE | 2024-10-17 07:23 | P.PN_ITS ---
Subjective Subjective Date Patient Seen: 10/17/24 Interval history: He is seen today to follow-up the bladder outlet obstruction and gross hematuria. The urine color is eco industrial development consultant pink. He continues to be somewhat disorganized and appears weaker than this issue would likely explain. He is probably at his baseline? The hemoglobin has dropped slightly down to 11.4. The BMP is normal. Exam Vital Signs (past 8 hours): - 10/17/24 00:00 10/17/24 04:00 Temperature 98.5 F 97.8 F Pulse Rate 104 H 105 H Respiratory Rate 12 Blood Pressure 130/85 135/84 Pulse Oximetry 98 95 Oxygen Flow Rate 0 0 Oxygen Delivery Method Room Air Oxygen Flow Rate 0 Narrative Exam Narrative: Alert and oriented x3. No apparent distress. Appears quite weak. Engages with what appears to be some internal distraction. Heart is regular rate and rhythm without murmur Lungs are clear to auscultation bilaterally Abdomen is soft, bowel sounds positive, no organomegaly. Tyler catheter with light pink urine. Extremities have no ankle edema. Objective Labs 10/17/24 05:10 10/17/24 05:10 Labs: Laboratory Results - last 24 hr 10/17/24 05:10 WBC 9.8 RBC 3.63 L Hgb 11.4 L Hct 33.0 L MCV 90.8 MCH 31.3 MCHC 34.5 RDW 14.0 Plt Count 193 Neut % (Auto) 68.0 Lymph % (Auto) 15.4 L [place] % (Auto) 11.1 Eos % (Auto) 4.4 H Baso % (Auto) 1.1 Neut # (Auto) 6600 Lymph # (Auto) 1500 [place] # (Auto) 1100 H Eos # (Auto) 400 Baso # (Auto) 100 Sodium 136 L Potassium 4.4 Chloride 106 Carbon Dioxide 27 BUN 20 Creatinine 1.14 Estimated GFR > 60 BUN/Creatinine Ratio 17.5 Glucose 120 H Calcium 7.9 L PFSH Medical History (Updated 10/17/24 @ 11:24 by Jaleesa Gutierrez MD) HLD (hyperlipidemia) HTN (hypertension) Schizophrenia Social History household members: none Smoking Status: Former smoker alcohol intake: never Assessment & Plan Assessment & Plan narrative: Chronic Bladder Outlet Obstruction - Tyler - Flomax - UA ordered 10/16 not done so far. - urology follow up Post-decomporessive hematuria - observation for bladder irrigation - discharge home with catheter and Urology follow-up once the visible bleeding stops. - UA/UC NETO - resolved with IVF SCHIZOPHRENIA - continue home Zyprexa and Effexor HLD - statin HTN - holding HCTZ for NETO - restarted on DVT prophylaxis - SCDs Time-Based Coding :: [TOTAL MINUTES] spent with patient and on the chart (including review of chart, obtaining history, exam, reviewing outside data, placing orders, documenting exam and treatment plan, and counseling patient) on [DATE].
[2024-10-17 08:00] VITALS: BP 116/76; PULSE 106; RESP 14; TEMP 36.8; O2SAT 96
[2024-10-17] MEDS: ATORVASTATIN 20 MG TABLET 10 MG PO (08:38)
[2024-10-17] MEDS: VENLAFAXINE ER 75 MG CAP PO (08:41)
[2024-10-17] MEDS: TAMSULOSIN 0.4 MG CAPSULE PO (08:41)
[2024-10-17] MEDS: hydroCHLOROthiazide 25 MG TABLET PO (08:41)
[2024-10-17] MEDS: SODIUM CHLORIDE 0.9% 1,000 ML 100 ML IV ×2 (08:42→18:50)
[2024-10-17] MEDS: polyethylene glycoL 3350 17 GM POWD.PACK PO (08:50)
[2024-10-17] MEDS: OXYCODONE IR 5 MG TABLET PO ×2 (11:44→20:46)
[2024-10-17] MEDS: ACETAMINOPHEN 325 MG TABLET 650 MG PO (11:45)
--- NOTE | 2024-10-17 11:49 | CM.DPC ---
DCP Cont: Per MD, pt's moser flushes seem to be improving and nursing informatics specialist pink and anticipate likely d/c home tomorrow Tu10/18 if moser cath flushes able to be discontinued. Plan is home with moser cath and outpt f/u with Urologist. SW met bedside with pt and explained role and he confirms he is aware that plan is potential d/c home tomorrow if stable with moser cath and outpt f/u and pt confirms he feels he can safely manage this at home in his apt alone and states his mom plans to provide transport home at d/c. Pt denies any further anticipated needs and preference is home at discharge. LANCE Herrera
[2024-10-17 12:00] VITALS: BP 160/82; PULSE 111; RESP 15; TEMP 36.9; O2SAT 98
[2024-10-17 15:14] LABS: Appearance Urine UA SL CLOUDY; Bilirubin Urine UA NEGATIVE (NEGATIVE); Glucose Urine UA NEGATIVE (Negative); Ketones Urine UA NEGATIVE (NEGATIVE); Leukocyte Esterase Urine UA TRACE (NEGATIVE); Nitrite Urine UA NEGATIVE (Negative); Occult Blood Urine UA 3+ (Negative); Protein Urine UA 2+ (Negative); Urobilinogen Urine UA 0.2 E.U./dL (0.2); pH Urine UA 5.5 (4.5-8.0)
[2024-10-17 15:25] LABS: Bacteria Urine Few (2-10); Color Urine UA Red; Culture Indicated Urine Cult Not Indicated; RBC Urine 10-30/HPF (0-5/HPF); Squamous Epithelial Cell Urine 1-5 /HPF (0-5/HPF); Urine Volume 10mL (spun); WBC Urine 1-5/HPF (0-5/HPF)
[2024-10-17 16:00] VITALS: BP 126/73; PULSE 109; RESP 14; TEMP 37; O2SAT 94
[2024-10-17 20:00] VITALS: BP 137/76; PULSE 105; RESP 18; TEMP 37.1; O2SAT 96
[2024-10-17] MEDS: OLANZapine 2.5 MG TABLET 20 MG PO (20:46)
[2024-10-18] VITALS: BP 131/68; PULSE 111; RESP 18; TEMP 37.3; O2SAT 95
[2024-10-18 04:00] VITALS: BP 144/68; PULSE 101; RESP 18; TEMP 36.9; O2SAT 95
[2024-10-18] MEDS: SODIUM CHLORIDE 0.9% 1,000 ML 100 ML IV (04:04)
--- NOTE | 2024-10-18 07:35 | PM.PN.1 ---
Subjective Subjective Date Patient Seen: 10/18/24 Exam Vital Signs (past 8 hours): - 10/18/24 00:00 10/18/24 04:00 Temperature 99.1 F 98.4 F Pulse Rate 111 H 101 H Respiratory Rate 18 18 Blood Pressure 131/68 144/68 H Pulse Oximetry 95 95 Oxygen Flow Rate 0 0 Oxygen Delivery Method Room Air Oxygen Flow Rate 0 Objective Labs 10/17/24 05:10 10/17/24 05:10 Labs: Laboratory Results - last 24 hr 10/17/24 15:00 Urine Color Red Urine Appearance Sl cloudy Urine pH 5.5 Ur Specific [place] 1.010 Urine Protein 2+ H Urine Glucose (UA) Negative Urine Ketones Negative Urine Occult Blood 3+ H Urine Nitrate Negative Urine Bilirubin Negative Urine Urobilinogen 0.2 Ur Leukocyte Esterase Trace H Urine RBC 10-30/hpf H Urine WBC 1-5/hpf Ur Squamous Epith Cells 1-5 /hpf Urine Bacteria Few (2-10) H Ur Culture Indicated? Cult not indicated Vol Urine Centrifuged 10ml (spun) [facility] Medical History (Updated 10/17/24 @ 11:24 by Jaleesa Gutierrez MD) HLD (hyperlipidemia) HTN (hypertension) Schizophrenia Social History household members: none Smoking Status: Former smoker alcohol intake: never Assessment & Plan Assessment & Plan narrative: Chronic Bladder Outlet Obstruction - Tyler - Flomax - UA ordered 10/16 not done so far. - urology follow up Post-decomporessive hematuria - observation for bladder irrigation - discharge home with catheter and Urology follow-up once the visible bleeding stops. - UA/UC NETO - resolved with IVF SCHIZOPHRENIA - continue home Zyprexa and Effexor HLD - statin HTN - holding HCTZ for NETO - restarted on DVT prophylaxis - SCDs Time-Based Coding :: [TOTAL MINUTES] spent with patient and on the chart (including review of chart, obtaining history, exam, reviewing outside data, placing orders, documenting exam and treatment plan, and counseling patient) on [DATE].
[2024-10-18 08:00] VITALS: BP 122/72; PULSE 109; RESP 18; TEMP 37.1; O2SAT 95
[2024-10-18] MEDS: ATORVASTATIN 20 MG TABLET 10 MG PO (08:49)
[2024-10-18] MEDS: hydroCHLOROthiazide 25 MG TABLET PO (08:49)
[2024-10-18] MEDS: VENLAFAXINE ER 75 MG CAP PO (08:49)
[2024-10-18] MEDS: TAMSULOSIN 0.4 MG CAPSULE PO (08:50)
[2024-10-18 08:51] VITALS: BP 130/73; PULSE 104
[2024-10-18] MEDS: polyethylene glycoL 3350 17 GM POWD.PACK PO (09:02)
--- NOTE | 2024-10-18 09:31 | PC.NURSE ---
Addendum entered by Vanessa Gutierrez R.N. 10/18/24 11:39: 1130 Report given to oncoming RN. Patient with no complaints at this time. Prescription for Flomax given to patient. Addendum entered by Vanessa Gutierrez R.N. 10/18/24 10:25: 1020 Patient CBI clamped, per MD Gutierrez order. RN to monitor urine output/color before discharge. Original Note: 729 Bedside report received from nightshift RN. Patient AAO x's 3. Continuous bladder irrigation noted, moser output pink tinged, occasionally clear. IV noted to left AC, dressing clean, dry and intact, NS infusing at 100 mL/hr. Able to STANLEY. Abdomen soft, non tender. Denies numbness and tingling. Pain to sacrum reported 3/10. Patient refusing pain medication. Educated on the importance of pain medication, patient continues to refuse. Complaining of constipation, will administer PRN Miralax. Call light within reach and bed in lowest position. 0900 Patient complaining of IV alarm beeping to right AC, new IV placed 20 G to right hand. Patient with no complaints at this time. IV to right AC, patent with good blood return, fluids infusing to right hand. 929 MD Gutierrez at the bedside, updating patient on plan of care. RN to continue bladder irrigation until possible d/c this afternoon.
--- NOTE | 2024-10-18 10:22 | PM.DS.1 ---
History of Present Illness History of Present Illness Chief complaint: Difficulty voiding, urine incontinence Narrative: 64 y/o with PMH of schizophrenia, on Zyprexa and Effexor, HTN - on HCTZ and HLD - on statin, who came to ED with evidence of chronic bladder outlet obstruction. He has difficulty voiding since few weeks or even months ago and lately he developed overflow incontinence. CT showing b/l mild hydronephrosis. After placed Tyler and bladder decompression by draining 2 L of urine, he developed bleed from overly stretched bladder vessels. Started irrigation in the ER, discussed with urology at , postdecompression bleed that should subside, no need for transfer. Labs with NETO. Without evidence of UTI. Placed in observation for post-decompressive hematuria. Once cleared he can discharge with Tyler with scheduled urology follow up Discharge Providers Provider Date of admission: 10/16/24 10:42 Primary care physician: Lulu Zamarripa PA-C Discharge provider: Jaleesa Gutierrez MD Summary Hospital Course Discharge Diagnosis: Chronic Bladder Outlet Obstruction - Tyler - Flomax - UA ordered 10/16 not done so far. - urology follow up Post-decomporessive hematuria - observation for bladder irrigation - discharge home with catheter and Urology follow-up once the visible bleeding stops. - UA/UC NETO - resolved with IVF SCHIZOPHRENIA - continue home Zyprexa and Effexor HLD - statin HTN - holding HCTZ for NETO - restarted on DVT prophylaxis - SCDs Exam Vital Signs (past 8 hours): - 10/18/24 04:00 10/18/24 08:00 10/18/24 08:51 Temperature 98.4 F 98.7 F Pulse Rate 101 H 109 H 104 H Respiratory Rate 18 18 Blood Pressure 144/68 H 122/72 130/73 Pulse Oximetry 95 95 Oxygen Flow Rate 0 0 Oxygen Delivery Method Room Air Oxygen Flow Rate 0 Objective Labs 10/17/24 05:10 10/17/24 05:10 Labs: Laboratory Results - last 24 hr 10/17/24 15:00 Urine Color Red Urine Appearance Sl cloudy Urine pH 5.5 Ur Specific [place] 1.010 Urine Protein 2+ H Urine Glucose (UA) Negative Urine Ketones Negative Urine Occult Blood 3+ H Urine Nitrate Negative Urine Bilirubin Negative Urine Urobilinogen 0.2 Ur Leukocyte Esterase Trace H Urine RBC 10-30/hpf H Urine WBC 1-5/hpf Ur Squamous Epith Cells 1-5 /hpf Urine Bacteria Few (2-10) H Ur Culture Indicated? Cult not indicated Vol Urine Centrifuged 10ml (spun) PFSH Medical History (Updated 10/17/24 @ 11:24 by Jaleesa Gutierrez MD) HLD (hyperlipidemia) HTN (hypertension) Schizophrenia Social History household members: none Smoking Status: Former smoker alcohol intake: never Discharge Plan Discharge Plan Patient Disposition: Home Health Service Transfer to: Home Health, Other Provider Discharge Comment: Follow up with Lulu Zamarripa PAC in 1 week for referral to urology. Keep the Tyler catheter in until you see urology. Discharge orders & Medications Prescriptions: New tamsulosin [Flomax] 0.4 mg Capsule 0.4 mg PO DAILY Qty: 30 0RF Continued hydrochlorothiazide 25 mg tablet 25 mg PO DAILY venlafaxine 75 mg capsule,extended release 24hr 75 mg PO DAILY lovastatin 40 mg tablet 40 mg PO DAILY olanzapine [Zyprexa] 20 MG tablet 20 mg PO HS Qty: 0 Follow up/Referrals: Lulu Zamarripa PA-C [Primary Care Provider] - Diet/Activity/Treatments Diet: Regular Catheter: 2-way Tyler Visit Report/Discharge Packet Stand Alone Forms: Patient Portal/API, Stroke Signs & Symptoms Discharge Data Primary Care Provider: Lulu Zamarripa I
--- NOTE | 2024-10-18 11:34 | CM.DPC ---
DCP Cont. Reviewed EMR and team rounds for status updates. Pt has been medically cleared for home d/c, he has some residual bleeding in his catheter tubing this am, so will be monitored and d/c later this afternoon after it has resolved. Per Hospitalist request, and pt's preference, this BUSINESS OFFICE SPECIALIST sent a referral to [facility] for post-d/c support. His brother will be transporting him home once he's been cleared again for d/c. No further CM needs indicated at this time.
[2024-10-18 12:00] VITALS: BP 132/73; PULSE 98; O2SAT 99
--- NOTE | 2024-10-18 12:02 | PC.NURSE ---
Addendum entered by Vipul Caro R.N. 10/18/24 12:39: Bladder irrigation resumed, cath bag emptied, see chart for details. Original Note: Assumed patient care at 1100am. Bedside shift report done with prev. nurse. Patient is resting in bed. CBI has been clamped (Per Prev. nurse) since 1020am an IVF are SL. Urine color grade is a Grade 3, with some blood sediment noted in tubing. No signs of clotting at this time. Patient is currently resting in bed. This nurse spoke with Dr. Gutierrez at bedside @ 1200. Verbal orders to cancel d/c orders due to urine color remaining at grade 3, resume CBI until further orders.
--- NOTE | 2024-10-18 12:30 | P.PN_ITS ---
Subjective Subjective Interval history: He is seen today to follow-up his gross hematuria and bladder outlet obstruction. His urine is definitely lightening up. This morning it looked very minimally tinged with pink discoloration but later on after the irrigation was held for 2 hours the amounts of redness increased again. His discharge will need to be postponed by another day. His UA shows 10-30 RBCs and 1-5 WBC. Exam Vital Signs (past 8 hours): - 10/18/24 08:00 10/18/24 08:51 Temperature 98.7 F Pulse Rate 109 H 104 H Respiratory Rate 18 Blood Pressure 122/72 130/73 Pulse Oximetry 95 Oxygen Flow Rate 0 Oxygen Delivery Method Room Air Oxygen Flow Rate 0 Narrative Exam Narrative: Alert and oriented x3. No apparent distress. Heart is regular rate and rhythm without murmur Abdomen is soft, bowel sounds positive, nontender, no organomegaly. Tyler catheter is in place. Objective Labs 10/17/24 05:10 10/17/24 05:10 Labs: Laboratory Results - last 24 hr 10/17/24 15:00 Urine Color Red Urine Appearance Sl cloudy Urine pH 5.5 Ur Specific [place] 1.010 Urine Protein 2+ H Urine Glucose (UA) Negative Urine Ketones Negative Urine Occult Blood 3+ H Urine Nitrate Negative Urine Bilirubin Negative Urine Urobilinogen 0.2 Ur Leukocyte Esterase Trace H Urine RBC 10-30/hpf H Urine WBC 1-5/hpf Ur Squamous Epith Cells 1-5 /hpf Urine Bacteria Few (2-10) H Ur Culture Indicated? Cult not indicated Vol Urine Centrifuged 10ml (spun) [facility] Medical History (Updated 10/17/24 @ 11:24 by Jaleesa Gutierrez MD) HLD (hyperlipidemia) HTN (hypertension) Schizophrenia Social History household members: none Smoking Status: Former smoker alcohol intake: never Assessment & Plan Assessment & Plan narrative: Chronic Bladder Outlet Obstruction - Tyler - Flomax - UA negative for UTI evidence - urology follow up as outpatient Post-decomporessive hematuria -continue the bladder irrigation -discharge home with catheter and Urology follow-up once the visible bleeding stops. -UA negative for UTI evidence NETO - resolved with IVF SCHIZOPHRENIA - continue home Zyprexa and Effexor HLD - statin HTN - holding HCTZ for NETO - restarted on DVT prophylaxis - SCDs Time-Based Coding :: [TOTAL MINUTES] spent with patient and on the chart (including review of chart, obtaining history, exam, reviewing outside data, placing orders, documenting exam and treatment plan, and counseling patient) on [DATE].
[2024-10-18 20:00] VITALS: BP 108/74; PULSE 70; RESP 18; TEMP 37.2; O2SAT 97
[2024-10-18] MEDS: OLANZapine 2.5 MG TABLET 20 MG PO (22:00)
[2024-10-18] MEDS: OXYCODONE IR 5 MG TABLET PO (22:04)
--- NOTE | 2024-10-18 23:29 | PC.NURSE ---
NOC: PCT noticed water on pt's floor and that pt CBI tube was hanging down from bag. Upon data processor, pt was found to have wet gown and detached CBI fluids. Fluids clamped. Pt stated that he got up out of bed to use the toilet and didn't notice that it became disconnected. Educated pt on calling before getting out of bed and ensured bed alarm was on. Changed pt gown and sheets. CBI resumed, moser patent and draining Grade II hematuria with occasional clots. Pt resting comfortably with call light within reach. Care continues.
[2024-10-19] VITALS: BP 146/81; PULSE 104; RESP 18; TEMP 36.9; O2SAT 97
[2024-10-19 06:00] VITALS: BP 123/71; PULSE 98; RESP 18; TEMP 37.2; O2SAT 94
--- NOTE | 2024-10-19 07:27 | P.PN_ITS ---
Subjective Subjective Date Patient Seen: 10/19/24 Exam Vital Signs (past 8 hours): - 10/19/24 00:00 10/19/24 06:00 Temperature 98.5 F 99 F Pulse Rate 104 H 98 H Respiratory Rate 18 18 Blood Pressure 146/81 H 123/71 Pulse Oximetry 97 94 Oxygen Flow Rate 0 0 Oxygen Delivery Method Room Air Oxygen Flow Rate 0 Objective Labs 10/17/24 05:10 10/17/24 05:10 [facility] Medical History (Updated 10/17/24 @ 11:24 by Jaleesa Gutierrez MD) HLD (hyperlipidemia) HTN (hypertension) Schizophrenia Social History household members: none Smoking Status: Former smoker alcohol intake: never Assessment & Plan Assessment & Plan narrative: Chronic Bladder Outlet Obstruction - Tyler - Flomax - UA negative for UTI evidence - urology follow up as outpatient Post-decomporessive hematuria -continue the bladder irrigation -discharge home with catheter and Urology follow-up once the visible bleeding stops. -UA negative for UTI evidence NETO - resolved with IVF SCHIZOPHRENIA - continue home Zyprexa and Effexor HLD - statin HTN - holding HCTZ for NETO - restarted on DVT prophylaxis - SCDs Time-Based Coding :: [TOTAL MINUTES] spent with patient and on the chart (including review of chart, obtaining history, exam, reviewing outside data, placing orders, documenting exam and treatment plan, and counseling patient) on [DATE].
[2024-10-19 08:00] VITALS: BP 109/70; PULSE 100; RESP 17; TEMP 36.6; O2SAT 95
[2024-10-19] MEDS: VENLAFAXINE ER 75 MG CAP PO (09:55)
[2024-10-19] MEDS: hydroCHLOROthiazide 25 MG TABLET PO (09:56)
[2024-10-19] MEDS: ATORVASTATIN 20 MG TABLET 10 MG PO (09:56)
[2024-10-19] MEDS: TAMSULOSIN 0.4 MG CAPSULE PO (09:57)
--- NOTE | 2024-10-19 10:35 | PC.NURSE ---
Day Shift: CBI discontinued per @ approx 0900. Pt. encouraged to drink extra fluids, some sediment still remains in moser line, urine remains light pink, will continue to monitor, call light in reach, bed alarm on.
[2024-10-19 12:00] VITALS: BP 102/63; PULSE 112; RESP 18; TEMP 36.9; O2SAT 94
--- NOTE | 2024-10-19 14:55 | P.DS_ITS ---
History of Present Illness History of Present Illness Date Patient Seen: 10/19/24 Time Patient Seen: 14:55 Chief complaint: Difficulty voiding, urine incontinence Narrative: 64 y/o with PMH of schizophrenia, on Zyprexa and Effexor, HTN - on HCTZ and HLD - on statin, who came to ED with evidence of chronic bladder outlet obstruction. He has difficulty voiding since few weeks or even months ago and lately he developed overflow incontinence. CT showing b/l mild hydronephrosis. After placed Tyler and bladder decompression by draining 2 L of urine, he developed bleed from overly stretched bladder vessels. Started irrigation in the ER, discussed with urology at , postdecompression bleed that should subside, no need for transfer. Labs with NETO. Without evidence of UTI. Placed in observation for post-decompressive hematuria. Once cleared he can discharge with Tyler with scheduled urology follow up Discharge Providers Provider Date of admission: 10/16/24 10:42 Discharge Date: 10/19/24 Primary care physician: Lulu Zamarripa PA-C Consults: 10/18/24 10:47 Consult to Home Health Routine Comment: PT, OT, RN Reason For Exam: Home Health Services Discharge provider: Jaleesa Gutierrez MD Summary Hospital Course Discharge Diagnosis: Chronic Bladder Outlet Obstruction - Tyler at home until urology eval. Color cleared to light pink/yellow with 4 days of irrigation. - Flomax - UA negative for UTI evidence - urology follow up as outpatient - to be arranged by PCP Post-decomporessive hematuria -bladder irrigation -discharge home with catheter and Urology follow-up once the visible bleeding stops. -UA negative for UTI evidence NETO - resolved with IVF SCHIZOPHRENIA - continue home Zyprexa and Effexor HLD - statin HTN - holding HCTZ for NETO - restarted on Hospital Course: He presented with severe overflow bladder obstruction symptoms. He says that he ?felt like he was going to , with all his bedding and clothing soaked in urine from overflow.? Tyler catheter placement revealed a greater than 2000 mL bladder distention. He then began experiencing gross hematuria ?post compressive bleed?. Per urology he was treated with bladder irrigation until the urine became only light pink and mostly yellow. He was discharged home with instructions to return if urine becomes bright pink/red again and to follow-up with his PCP, Lulu Zamarripa next week for urology referral. Status at Discharge Cognitive/behavioral status at discharge: at baseline, oriented Functional status at discharge: independent ambulation Overall status at discharge: patient is progressing back to baseline Time Spent with Patient Time spent: Less than 30 minutes Exam Vital Signs (past 8 hours): - 10/19/24 08:00 10/19/24 12:00 Temperature 97.8 F 98.4 F Pulse Rate 100 H 112 H Respiratory Rate 17 18 Blood Pressure 109/70 102/63 Pulse Oximetry 95 94 Oxygen Flow Rate 0 0 Oxygen Delivery Method Room Air Oxygen Flow Rate 0 Narrative Exam Narrative: Alert and oriented x3. No apparent distress. He is far more engaged and interactive than he was a few days ago when he was quite internally distracted. Heart is regular rate and rhythm without murmur Abdomen is soft, bowel sounds positive, nontender, no organomegaly Extremities have no ankle edema The Tyler catheter line has light pink, almost dark yellow urine. Objective Labs 10/17/24 05:10 10/17/24 05:10 [facility] Medical History (Updated 10/17/24 @ 11:24 by Jaleesa Gutierrez MD) HLD (hyperlipidemia) HTN (hypertension) Schizophrenia Social History household members: none Smoking Status: Former smoker alcohol intake: never Discharge Plan Discharge Plan Patient Disposition: Home Health Service Transfer to: Home Health, Other Provider Discharge Comment: Follow up with Lulu Zamarripa PAC in 1 week for referral to urology. Keep the Tyler catheter in until you see urology. Discharge orders & Medications Prescriptions: New tamsulosin [Flomax] 0.4 mg Capsule 0.4 mg PO DAILY Qty: 30 0RF Continued hydrochlorothiazide 25 mg tablet 25 mg PO DAILY venlafaxine 75 mg capsule,extended release 24hr 75 mg PO DAILY lovastatin 40 mg tablet 40 mg PO DAILY olanzapine [Zyprexa] 20 MG tablet 20 mg PO HS Qty: 0 Follow up/Referrals: Lulu Zamarripa PA-C [Primary Care Provider] - Diet/Activity/Treatments Diet: Regular Catheter: 2-way Tyler Visit Report/Discharge Packet Stand Alone Forms: Patient Portal/API, Stroke Signs & Symptoms Discharge Data Primary Care Provider: Lluu Zamarripa I
[2024-10-19] MEDS: OXYCODONE IR 5 MG TABLET PO (16:34)
--- NOTE | 2024-10-19 17:00 | PC.NURSE ---
Day shift: Paperwork signed and all questions answered. Pt's Sister in room for discharge. Tyler draining light pink and Dr Gutierrez aware. Pt has all personal belongings and items from safe. Left unit via WC at approx 1645 and taken by RONAL Mercado. Sister is driving him home and he lives local. Pt made aware if ashley blood present in Tyler he should return to the ED.
== END 2024-10-19 16:45 | disposition home health service (06) | DRG 699 ==
LOC: ED 19:03 → AC 10-15 02:35
PROVIDERS: Family Medicine; Internal Medicine; Admitting Provider Internal Medicine; Emergency Provider Emergency Medicine; PCP Physician Assistant; Referring Provider Emergency Medicine; Visit Provider Internal Medicine
DX: N32.0 Bladder-neck obstruction (principal); N13.30 Unspecified hydronephrosis; N17.9 Acute kidney failure, unspecified; F20.9 Schizophrenia, unspecified; I10 Essential (primary) hypertension; E78.5 Hyperlipidemia, unspecified; R31.0 Gross hematuria; N39.490 Overflow incontinence; Z87.891 Personal history of nicotine dependence
CPT/HCPCS: 36415; 51702; 51798; 74176; 80048; 80053; 81001; 85014; 85018; 85025; 85027; 96361; 96374; 99284; G0378; J3010

== ENCOUNTER 2024-10-22 10:28 | Emergency (ER) | payer MEDICARE, MEDICAID, SELFPAY ==
[2024-10-15 04:30] VITALS: BMI 35.9
--- NOTE | 2024-10-22 10:47 | ED.MALEGU ---
HPI - Male Genitourinary General Chief complaint: Urogenital-Male Stated complaint: Cathater fell out of entry site Time Seen by Provider: 10/22/24 10:30 History of Present Illness HPI Narrative: 64yoM with PMH schizophrenia, urinary retention presents by private vehicle from home for leakage around his moser catheter. Patient states that when he got up from the bed his Moser catheter accidentally got caught on something. Since then his catheter has had leakage around it. He was had continued pink tinged urine since his discharge from the hospital several days ago. Denies any other complaints at this time. Related Data Home Medications Medication Instructions Recorded Confirmed olanzapine 20 mg tablet (Zyprexa) 20 mg PO HS #0 tabs 05/13/16 10/14/24 hydrochlorothiazide 25 mg tablet 25 mg PO DAILY 09/16/24 10/14/24 lovastatin 40 mg tablet 40 mg PO DAILY 09/16/24 10/14/24 venlafaxine 75 mg capsule,extended 75 mg PO DAILY 09/16/24 10/14/24 release 24 hr Previous Rx's Medication Instructions Recorded tamsulosin 0.4 mg capsule (Flomax) 0.4 mg PO DAILY #30 caps 10/18/24 Allergies Allergy/AdvReac Type Severity Reaction Status Date / Time morphine [MORPHINE] Allergy Intermediate FACIAL Verified 10/15/24 03:46 BLISTERING, FEVER Patient History Medical History HLD (hyperlipidemia) HTN (hypertension) Schizophrenia Social History household members: none Smoking Status: Former smoker alcohol intake: never Smoking Status: Former smoker Exam Initial Vital Signs Initial Vital Signs: Vital Signs Temperature 97.8 F 10/22/24 10:54 Pulse Rate 96 H 10/22/24 10:54 Respiratory Rate 18 10/22/24 10:54 Blood Pressure 156/79 H 10/22/24 10:54 Pulse Oximetry 96 10/22/24 10:54 Oxygen Delivery Method Room Air 10/22/24 10:54 Const: Awake, alert, no acute distress, nontoxic appearing Cardiac: regular rate, regular rhythm RESP: unlabored, conversational without dyspnea GI: Soft, umbilical hernia (easily reducible) : moser catheter in place, draining pink-tinged urine Skin: Warm, Dry, intact, no rashes Neuro: AO x3, CN II-XII grossly intact, moves all extremities Course Vital Signs Vital signs: Vital Signs - 8 hr 10/22/24 10:54 Temperature 97.8 F Pulse Rate 96 H Respiratory Rate 18 Blood Pressure 156/79 H Pulse Oximetry 96 Oxygen Delivery Method Room Air MDM - Male Genitourinary MDM Narrative Medical decision making narrative: Patient with leakage from around Moser catheter site after accidentally catching the catheter tubing. Nursing staff only able to remove 10 cc of fluid out of a 30 cc balloon. The balloon was reinflated with cessation of drainage from around the catheter. Patient observed for a short time period - he is up and ambulating without any further leakage from his catheter. He states that he is ready to go. He has an upcoming appointment for specialty referral in 3 days. ED return precautions discussed. Discharge Plan Departure Patient Disposition: Home Clinical Impression: Malfunction of Moser catheter Instructions: DI for Urinary Retention in Men Activity Restrictions/Additional Instructions: Your catheter balloon was slightly deflated, which is probably why you had leakage. Keep all of your appointments as scheduled. Prescriptions: No Action hydrochlorothiazide 25 mg tablet 25 mg PO DAILY venlafaxine 75 mg capsule,extended release 24hr 75 mg PO DAILY lovastatin 40 mg tablet 40 mg PO DAILY olanzapine [Zyprexa] 20 MG tablet 20 mg PO HS Qty: 0 tamsulosin [Flomax] 0.4 mg Capsule 0.4 mg PO DAILY Qty: 30 0RF Referrals: Lulu Zamarripa PA-C [Primary Care Provider] - Stand Alone Forms: Patient Portal/API/Survey
[2024-10-22 10:54] VITALS: BP 156/79; PULSE 96; RESP 18; TEMP 36.6; O2SAT 96; BMI 33.2
--- NOTE | 2024-10-22 10:58 | PC.NURSE ---
Pt stated after catheter was pulled, it feels like it keeps slipping out, and there is urine leaking around the sides. Pts catheter balloon was manually drained and 10cc'c was noted to be in the balloon. The catheter is labeled a 20fr 30cc balloon. 30 cc's placed in balloon and no leakage visualized and catheter appears to be firmly in place.
== END 2024-10-22 11:23 | disposition home or self-care (01) ==
PROVIDERS: Emergency Provider Emergency Medicine; PCP Physician Assistant
DX: T83.011A Breakdown (mechanical) of indwelling urethral catheter, initial encounter (principal); E78.5 Hyperlipidemia, unspecified; I10 Essential (primary) hypertension
CPT/HCPCS: 99281

== ENCOUNTER 2024-11-16 16:12 | Emergency (ER) | payer MEDICARE, SELFPAY ==
[2024-10-15 04:30] VITALS: BMI 35.9
[2024-11-16] VITALS (15 sets, daily range): BP systolic 139–167; BP diastolic 72–86; PULSE 77–106; RESP 18–20; TEMP 37.1; O2SAT 95–97; BMI 33.2
--- NOTE | 2024-11-16 17:10 | ED.EXTPRO ---
HPI - Extremity Problem <Tonya Olivares PA-C - Last Filed: 11/16/24 19:18> General Chief complaint: Extremity Problem,Nontraumatic Stated complaint: sent by MD, possible blood clot in rt leg Time Seen by Provider: 11/16/24 16:55 Source: patient Mode of arrival: Ambulatory History of Present Illness HPI Narrative: Mr. Soto is a pleasant 64-year-old male with a past medical history of urinary retention with Tyler catheter in place, schizophrenia, umbilical hernia who presents to the emergency department after being sent by his PCP Maday Hernandez ([facility]) for concern of right lower extremity DVT. Patient reports he has had right leg swelling x2 weeks. States that he initially was having some blood in his stool which caused him to do a stool test, he was prepping for colonoscopy when he developed acute kidney injury and urinary retention, Tyler catheter was placed, on 11/10/[address] IVP abdomen pelvis performed which revealed subtle hypodensity at the bilateral common femoral veins. Differential diagnosis of DVT versus inflow of non-opacified contrast, therefore patient was sent to the emergency department for DVT ultrasound. Patient denies any pain of the right leg, increased warmth or fevers but states that he is noticed it has been swollen for about 2 weeks. He does attach his Tyler catheter bag to this right leg. Denies chest pain, shortness of breath, recent travel, history of blood clot, current bloody stool or bloody urine, any recent surgery. Related Data Home Medications Medication Instructions Recorded Confirmed olanzapine 20 mg tablet (Zyprexa) 20 mg PO HS #0 tabs 05/13/16 11/16/24 hydrochlorothiazide 25 mg tablet 25 mg PO DAILY 09/16/24 11/16/24 lovastatin 40 mg tablet 40 mg PO DAILY 09/16/24 11/16/24 venlafaxine 75 mg capsule,extended 75 mg PO DAILY 09/16/24 11/16/24 release 24 hr Previous Rx's Medication Instructions Recorded tamsulosin 0.4 mg capsule (Flomax) 0.4 mg PO DAILY #30 caps 10/18/24 apixaban 5 mg tablet (Eliquis) 5 mg PO BID #60 tabs 11/16/24 Allergies Allergy/AdvReac Type Severity Reaction Status Date / Time morphine [MORPHINE] Allergy Intermediate FACIAL Verified 10/15/24 03:46 BLISTERING, FEVER Review of Systems <Tonya Olivares PA-C - Last Filed: 11/16/24 19:18> Review of Systems ROS Unobtainable: All systems reviewed & are unremarkable except as noted in HPI and below Patient History <Tonya Olivares PA-C - Last Filed: 11/16/24 19:18> Medical History HLD (hyperlipidemia) HTN (hypertension) Schizophrenia Social History household members: none Smoking Status: Former smoker alcohol intake: never Smoking Status: Former smoker Exam <Tonya Olivares PA-C - Last Filed: 11/16/24 19:18> Narrative Exam Narrative: GENERAL: 64 year old patient appears stated age. Overweight patient, in no acute distress. HEAD: Atraumatic. Normocephalic. NECK: Trachea midline. Cervical ROM intact. CARDIOVASCULAR: Increased rate, regular rhythm. RESPIRATORY: ?Nonlabored respirations. ?Speaking in clear, full sentences. ?Clear to auscultation. Breath sounds equal bilaterally. No wheezes, rales, or rhonchi. ? EXTREMITIES: Right lower extremity edematous from knee down to foot. There is pitting edema bilaterally, 1+, however right calf circumference is increased significantly compared to left. Strong DP and PT pulses palpated bilaterally and brisk capillary refill on the feet. Tyler bag attached right lower leg with clear yellow urine. NEURO: AOx3. ?Clear speech. ?Moves all 4 extremities appropriately. SKIN: No streaking erythema or increased warmth of right lower leg. Initial Vital Signs Initial Vital Signs: Vital Signs Temperature 98.8 F 11/16/24 16:17 Pulse Rate 100 H 11/16/24 16:17 Respiratory Rate 18 11/16/24 16:17 Blood Pressure 162/72 H 11/16/24 16:17 Pulse Oximetry 96 11/16/24 16:17 Oxygen Delivery Method Room Air 11/16/24 16:17 <Mauricio Wright MD - Last Filed: 11/17/24 02:50> Initial Vital Signs Initial Vital Signs: Vital Signs Temperature 98.8 F 11/16/24 16:17 Pulse Rate 100 H 11/16/24 16:17 Respiratory Rate 18 11/16/24 16:17 Blood Pressure 162/72 H 11/16/24 16:17 Pulse Oximetry 96 11/16/24 16:17 Oxygen Delivery Method Room Air 11/16/24 16:17 Course <Tonya Olivares PA-C - Last Filed: 11/16/24 19:18> Orders Ordered: ED Orders 11/16/24 18:35 Complete Blood Count AUTO DIFF Stat Comprehensive Metabolic Panel Stat NT-proBNP (BNP-Adult 18+) Stat PTT Partial Thromboplastin Ti Stat Prothrombin Time INR Stat Troponin & CK Cardiac Panel Stat 11/16/24 18:41 CT angio chest PE protocol Stat 11/16/24 19:44 CT abdomen pelvis w con Stat Discontinued Medications Apixaban (Apixaban 5 Mg Tablet) 5 mg PO NOW ONE Stop: 11/16/24 23:48 Last Admin: 11/16/24 23:53 Dose: 5 mg Documented By: HNG Vital Signs Vital signs: Vital Signs - 8 hr 11/16/24 19:04 11/16/24 19:22 11/16/24 19:22 Pulse Rate 91 H Pulse Rate [Right Dorsalis Pedis] 77 Respiratory Rate Blood Pressure 144/73 H Pulse Oximetry 97 Oxygen Delivery Method 11/16/24 19:30 11/16/24 19:30 11/16/24 19:51 Pulse Rate 90 91 H Pulse Rate [Right Dorsalis Pedis] Respiratory Rate 18 Blood Pressure 139/72 Pulse Oximetry 96 96 Oxygen Delivery Method 11/16/24 20:06 11/16/24 20:30 11/16/24 20:52 Pulse Rate 87 Pulse Rate [Right Dorsalis Pedis] Respiratory Rate 18 Blood Pressure 158/75 H 158/80 H Pulse Oximetry 97 Oxygen Delivery Method 11/16/24 21:00 11/16/24 21:00 11/16/24 21:30 Pulse Rate 86 85 Pulse Rate [Right Dorsalis Pedis] Respiratory Rate Blood Pressure 163/86 H Pulse Oximetry 96 97 Oxygen Delivery Method 11/16/24 21:30 11/16/24 22:00 11/16/24 22:00 Pulse Rate 89 Pulse Rate [Right Dorsalis Pedis] Respiratory Rate 20 18 Blood Pressure 167/79 H 162/85 H Pulse Oximetry 97 Oxygen Delivery Method Room Air 11/16/24 22:30 11/16/24 22:30 11/16/24 23:00 Pulse Rate 90 93 H Pulse Rate [Right Dorsalis Pedis] Respiratory Rate 18 Blood Pressure 166/81 H Pulse Oximetry 95 95 Oxygen Delivery Method 11/16/24 23:00 11/16/24 23:30 11/16/24 23:30 Pulse Rate 91 H Pulse Rate [Right Dorsalis Pedis] Respiratory Rate 18 Blood Pressure 157/79 H 160/82 H Pulse Oximetry 96 Oxygen Delivery Method <Mauricio Wright MD - Last Filed: 11/17/24 02:50> Orders Ordered: ED Orders 11/16/24 18:35 Complete Blood Count AUTO DIFF Stat Comprehensive Metabolic Panel Stat NT-proBNP (BNP-Adult 18+) Stat PTT Partial Thromboplastin Ti Stat Prothrombin Time INR Stat Troponin & CK Cardiac Panel Stat 11/16/24 18:41 CT angio chest PE protocol Stat 11/16/24 19:44 CT abdomen pelvis w con Stat Discontinued Medications Apixaban (Apixaban 5 Mg Tablet) 5 mg PO NOW ONE Stop: 11/16/24 23:48 Last Admin: 11/16/24 23:53 Dose: 5 mg Documented By: HNG Vital Signs Vital signs: Vital Signs - 8 hr 11/16/24 19:04 11/16/24 19:22 11/16/24 19:22 Pulse Rate 91 H Pulse Rate [Right Dorsalis Pedis] 77 Respiratory Rate Blood Pressure 144/73 H Pulse Oximetry 97 Oxygen Delivery Method 11/16/24 19:30 11/16/24 19:30 11/16/24 19:51 Pulse Rate 90 91 H Pulse Rate [Right Dorsalis Pedis] Respiratory Rate 18 Blood Pressure 139/72 Pulse Oximetry 96 96 Oxygen Delivery Method 11/16/24 20:06 11/16/24 20:30 11/16/24 20:52 Pulse Rate 87 Pulse Rate [Right Dorsalis Pedis] Respiratory Rate 18 Blood Pressure 158/75 H 158/80 H Pulse Oximetry 97 Oxygen Delivery Method 11/16/24 21:00 11/16/24 21:00 11/16/24 21:30 Pulse Rate 86 85 Pulse Rate [Right Dorsalis Pedis] Respiratory Rate Blood Pressure 163/86 H Pulse Oximetry 96 97 Oxygen Delivery Method 11/16/24 21:30 11/16/24 22:00 11/16/24 22:00 Pulse Rate 89 Pulse Rate [Right Dorsalis Pedis] Respiratory Rate 20 18 Blood Pressure 167/79 H 162/85 H Pulse Oximetry 97 Oxygen Delivery Method Room Air 11/16/24 22:30 11/16/24 22:30 11/16/24 23:00 Pulse Rate 90 93 H Pulse Rate [Right Dorsalis Pedis] Respiratory Rate 18 Blood Pressure 166/81 H Pulse Oximetry 95 95 Oxygen Delivery Method 11/16/24 23:00 11/16/24 23:30 11/16/24 23:30 Pulse Rate 91 H Pulse Rate [Right Dorsalis Pedis] Respiratory Rate 18 Blood Pressure 157/79 H 160/82 H Pulse Oximetry 96 Oxygen Delivery Method MDM - Extremity (Nontraumatic) <Tonya Olivares PA-C - Last Filed: 11/16/24 19:18> Medical Records Attestation: I reviewed the patient's medical records. Lab Data 11/16/24 18:35 11/16/24 18:35 Labs: Lab Results 11/16/24 Range/Units 18:35 WBC 7.8 (4.5-11.0) X10^3/uL RBC 3.33 L (4.5-5.9) X10^6/uL Hgb 10.4 L (13.5-17.5) g/dL Hct 30.8 L (41-53) % MCV 92.5 (80-100) fL MCH 31.3 (26-34) PG MCHC 33.8 (30-36) % RDW 15.5 H (11.6-14.8) % Plt Count 256 (150-400) X10^3/uL Neut % (Auto) 66.3 (50-75) % Lymph % (Auto) 20.7 L (25-40) % Mccone % (Auto) 7.1 (3-14) % Eos % (Auto) 5.1 H (2-4) % Baso % (Auto) 0.8 (0-2) % Neut # (Auto) 5200 (5439-1595) /uL Lymph # (Auto) 1600 (5461-5954) /uL Mccone # (Auto) 600 (0-900) /uL Eos # (Auto) 400 (0-450) /uL Baso # (Auto) 100 (0-100) /uL PT 11.0 (9.4-12.5) SECONDS INR 1.0 (0.9-1.3) APTT 30 (25.1-36.5) SECONDS Sodium 138 (137-145) mmol/L Potassium 4.4 (3.4-5.1) mmol/L Chloride 106 (98-107) mmol/L Carbon Dioxide 28 (22-32) mmol/L BUN 19 (9-20) mg/dL Creatinine 1.25 (0.66-1.25) mg/dL Estimated GFR > 60 (>60) mL/min BUN/Creatinine Ratio 15.2 (6-22) Glucose 107 (80-110) mg/dL Calcium 8.8 (8.4-10.2) mg/dL Total Bilirubin 0.2 (0.2-1.3) mg/dL AST 29 (17-59) IU/L ALT 26 (<50) IU/L Alkaline Phosphatase 101 (38-126) U/L Total Creatine Kinase 65 (55-170) U/L Troponin I < 0.012 (0.01-0.034) ng/mL NT-Pro-B Natriuret Pep 100 (<125) pg/mL Total Protein 6.6 (6.3-8.2) g/dL Albumin 3.6 (3.5-5.0) g/dL Globulin 3.0 (1.7-4.1) g/dL Albumin/Globulin Ratio 1.2 (1.0-2.8) MDM Narrative Medical decision making narrative: 64-year-old male with a past medical history of urinary retention with Tyler catheter in place, schizophrenia, umbilical hernia who presents to the emergency department after being sent by his PCP Maday Hernandez ([facility]) for concern of right lower extremity DVT. Patient reports he has had right leg swelling x2 weeks. States that he initially was having some blood in his stool which caused him to do a stool test, he was prepping for colonoscopy when he developed acute kidney injury and urinary retention, Tyler catheter was placed, on 11/10/[address] IVP abdomen pelvis performed which revealed subtle hypodensity at the bilateral common femoral veins. Differential diagnosis of DVT versus inflow of non-opacified contrast, therefore patient was sent to the emergency department for DVT ultrasound. Differential diagnosis includes but is not limited to right lower extremity DVT, bilateral DVT, PE, cellulitis, CHF, renal failure, fluid overload, etc. On exam patient is in no acute distress, nontoxic appearing, vital signs appropriate except for mildly elevated heart rate which appears to be somewhat baseline for him since September of this year. Reviewed records including CT abdomen pelvis from [facility] and ED visits on 10/14 and 10/22 for NETO and Tyler catheter malfunction respectively. Physical exam reveals an edematous right lower extremity with slight pitting edema bilaterally. Concerned for DVT of the right leg however CT did reveal possible DVT of both legs so we will obtain bilateral peripheral venous ultrasounds in addition to baseline lab work including troponin and coags given elevated heart rate in the setting of possible DVT however patient is not experiencing any chest pain or shortness of breath. Right lower extremity venous ultrasound concerning for common femoral DVT. Given finding of DVT and elevated heart rate, I discussed the case with the attending physician Dr. Wright, will add on CTA chest protocol. All studies pending at time of transfer care except for vascular ultrasound which reveals positive DVT in the right common femoral vein, profunda femoral, superficial femoral, popliteal vein. Patient aware of positive DVT finding and the need for transfer to main Emergency Department for shift change/higher level of care. Patient is stable for transfer at this time. <Mauricio Wright MD - Last Filed: 11/17/24 02:50> Lab Data Labs: Lab Results 11/16/24 Range/Units 18:35 WBC 7.8 (4.5-11.0) X10^3/uL RBC 3.33 L (4.5-5.9) X10^6/uL Hgb 10.4 L (13.5-17.5) g/dL Hct 30.8 L (41-53) % MCV 92.5 (80-100) fL MCH 31.3 (26-34) PG MCHC 33.8 (30-36) % RDW 15.5 H (11.6-14.8) % Plt Count 256 (150-400) X10^3/uL Neut % (Auto) 66.3 (50-75) % Lymph % (Auto) 20.7 L (25-40) % Mccone % (Auto) 7.1 (3-14) % Eos % (Auto) 5.1 H (2-4) % Baso % (Auto) 0.8 (0-2) % Neut # (Auto) 5200 (2061-8223) /uL Lymph # (Auto) 1600 (4837-1529) /uL Mccone # (Auto) 600 (0-900) /uL Eos # (Auto) 400 (0-450) /uL Baso # (Auto) 100 (0-100) /uL PT 11.0 (9.4-12.5) SECONDS INR 1.0 (0.9-1.3) APTT 30 (25.1-36.5) SECONDS Sodium 138 (137-145) mmol/L Potassium 4.4 (3.4-5.1) mmol/L Chloride 106 (98-107) mmol/L Carbon Dioxide 28 (22-32) mmol/L BUN 19 (9-20) mg/dL Creatinine 1.25 (0.66-1.25) mg/dL Estimated GFR > 60 (>60) mL/min BUN/Creatinine Ratio 15.2 (6-22) Glucose 107 (80-110) mg/dL Calcium 8.8 (8.4-10.2) mg/dL Total Bilirubin 0.2 (0.2-1.3) mg/dL AST 29 (17-59) IU/L ALT 26 (<50) IU/L Alkaline Phosphatase 101 (38-126) U/L Total Creatine Kinase 65 (55-170) U/L Troponin I < 0.012 (0.01-0.034) ng/mL NT-Pro-B Natriuret Pep 100 (<125) pg/mL Total Protein 6.6 (6.3-8.2) g/dL Albumin 3.6 (3.5-5.0) g/dL Globulin 3.0 (1.7-4.1) g/dL Albumin/Globulin Ratio 1.2 (1.0-2.8) Imaging Data Lower extremity venous Doppler: Radiologist's Impression: Close Vascular Ultrasound (Signed) Beulah Matthews - 11/16/24 Launch?[address] [address] Ultrasound Report Signed Patient: Darrell Soto MR#: [id number] : 1960 Acct:[id number] Age/Sex: 64 / M Date of Service: 11/16/24 Loc: ED Accession Number: [id number] Procedure: US periph venous low extrem bi Ordering Provider: Tonya Olivares PA-C PROCEDURE: PERIPH VENOUS LOW EXTREM BI INDICATIONS: RLE swelling x 2 weeks; CT AP w/ BL hypodensity common femor TECHNIQUE: Real-time imaging, as well as color and pulse Doppler interrogation, were performed of the deep veins of both legs from the inguinal ligament to the popliteal fossa, with documentation of the visualized calf veins. COMPARISON: None. FINDINGS: Right: There is expansile, partially occlusive thrombus in the right common femoral vein, profunda femoral, superficial femoral, and popliteal vein. Greater saphenous vein is patent. Left: The common femoral, femoral, popliteal, and the visualized calf veins are normally compressible, and free of intraluminal thrombus. Color and pulse Doppler demonstrate normal phasic intravascular flow. There is normal augmentation response to distal compression maneuver. IMPRESSION: DVT in the right lower extremity. No DVT in the left lower extremity. Dictated by: Beulah Matthews M.D. on 11/16/2024 at 18:53 Approved by: Beulah Matthews M.D. on 11/16/2024 at 18:54 CT angiogram chest: Radiologist's Impression: [place] [address] CT Scan Report Signed Patient: Darrell Soto MR#: [id number] : 1960 Acct:[id number] Age/Sex: 64 / M Date of Service: 11/16/24 Loc: ED Accession Number: [id number] Procedure: CT angio chest PE protocol Ordering Provider: Tonya Olivares PA-C PROCEDURE: CT ANGIO CHEST PE PROTOCOL INDICATIONS: right common fem DVT, tachycardia, concern PE TECHNIQUE: After the administration of intravenous contrast, 2 mm thick sections acquired from the pulmonary apices to the posterior costophrenic angles. 3-dimensional maximum intensity projection (MIP) coronal and sagittal reformats were then acquired through the thorax. For radiation dose reduction, the following was used: automated exposure control, adjustment of mA and/or kV according to patient size. COMPARISON: [facility], CT, CT ABDOMEN PELVIS W CON, 11/16/2024, 19:50. FINDINGS: Image quality: Fair; suboptimal pulmonary arterial opacification limits evaluation for pulmonary embolism to the interlobar level. Thyroid: Within normal limits. Cardiac: Heart size within normal limits. No pericardial effusion. RV: LV ratio within normal limits. No bowing of the interventricular septum. No reflux of contrast into the hepatic veins. Aorta: Thoracic aortic diameter within normal limits. Pulmonary Artery: Main pulmonary artery diameter within normal limits. No central filling defect in the pulmonary arteries to the interlobar level. Lungs: No focal lung consolidation. Pleura: No pneumothorax or pleural effusion. Airways: The trachea and mainstem bronchi are patent. Lymph Nodes: No mediastinal, hilar, or axillary lymphadenopathy. Esophagus: Mildly patulous and dilated. Bones: No acute osseous abnormality. Diffuse idiopathic skeletal hyperostosis of the thoracic spine. Upper Abdomen: Please see the same-day CT abdomen pelvis with contrast report for further details. IMPRESSION: 1. No CT evidence of pulmonary embolism to the interlobar level. 2. Esophageal findings, which can be seen with esophageal reflux disease. Dictated by: Ludin Bartlett M.D. on 11/16/2024 at 20:25 Approved by: Ludin Bartlett M.D. on 11/16/2024 at 20:29 CT scan - abdomen/pelvis: Radiologist's Impression: [place] [address] CT Scan Report Signed Patient: Darrell Soto MR#: [id number] : 1960 Acct:[id number] Age/Sex: 64 / M Date of Service: 11/16/24 Loc: ED Accession Number: [id number] Procedure: CT abdomen pelvis w con Ordering Provider: Mauricio Wright MD PROCEDURE: CT ABDOMEN PELVIS W CON INDICATIONS: clot problems, ?pelvic clots too TECHNIQUE: After the administration of intravenous contrast, axial sections acquired from the lung bases to the pubic symphysis. Coronal and sagittal reformats were performed. For radiation dose reduction, the following was used: automated exposure control, adjustment of mA and/or kV according to patient size. COMPARISON: [facility], , US PERIPH VENOUS LOW EXTREM BI, 11/16/2024, 17:57. [facility], CT, CT IVP, 11/10/2024, 12:18. FINDINGS: Image quality: Diagnostic. Peritoneum: No pneumoperitoneum or ascites. Bones: No acute osseous abnormality. Lower Chest: Please see the same-day CT chest angiogram report for details. Liver: Normal in size and contour. Gallbladder: No stones or pericholecystic fluid. Biliary tree: No intrahepatic or extrahepatic biliary ductal dilatation. Pancreas: Within normal limits. Spleen: Normal in size and contour. Kidneys: No hydronephrosis or obstructive urolithiasis. Bilateral simple renal cysts. Adrenals: No adrenal nodularity. Bladder: Decompressed with a Tyler catheter. : No acute abnormality. Stomach: Normal in size and contour. Bowel: Normal in diameter without any bowel obstruction. Appendix within normal limits (2/102). Lymph Nodes: No retroperitoneal, mesenteric, or inguinal lymphadenopathy. Vascular: No abdominal aortic aneurysm. The visualized arterial vasculature is patent. Right common femoral vein central filling defect (2/150), compatible with the known thrombus Soft Tissues: Moderate umbilical hernia containing fat and loops of distal ileum (2/98), without mesenteric edema. IMPRESSION: 1. Re-identified right common femoral vein thrombosis. 2. Moderate fat and bowel containing umbilical hernia without CT evidence of mesenteric ischemia. 3. No other acute CT abnormality of the abdomen/pelvis. Dictated by: Ludin Bartlett M.D. on 11/16/2024 at 20:29 Approved by: Ludin Bartlett M.D. on 11/16/2024 at 20:35 MDM Narrative Medical decision making narrative: 64-year-old male with a past medical history of urinary retention with Tyler catheter in place, schizophrenia, umbilical hernia who presents to the emergency department after being sent by his PCP Maday Aaron) for concern of right lower extremity DVT. Patient reports he has had right leg swelling x2 weeks. States that he initially was having some blood in his stool which caused him to do a stool test, he was prepping for colonoscopy when he developed acute kidney injury and urinary retention, Tyler catheter was placed, on 11/10/[address] IVP abdomen pelvis performed which revealed subtle hypodensity at the bilateral common femoral veins. Differential diagnosis of DVT versus inflow of non-opacified contrast, therefore patient was sent to the emergency department for DVT ultrasound. Differential diagnosis includes but is not limited to right lower extremity DVT, bilateral DVT, PE, cellulitis, CHF, renal failure, fluid overload, etc. On exam patient is in no acute distress, nontoxic appearing, vital signs appropriate except for mildly elevated heart rate which appears to be somewhat baseline for him since September of this year. Reviewed records including CT abdomen pelvis from [facility] and ED visits on 10/14 and 10/22 for NETO and Tyler catheter malfunction respectively. Physical exam reveals an edematous right lower extremity with slight pitting edema bilaterally. Concerned for DVT of the right leg however CT did reveal possible DVT of both legs so we will obtain bilateral peripheral venous ultrasounds in addition to baseline lab work including troponin and coags given elevated heart rate in the setting of possible DVT however patient is not experiencing any chest pain or shortness of breath. Right lower extremity venous ultrasound concerning for common femoral DVT. Given finding of DVT and elevated heart rate, I discussed the case with the attending physician Dr. Wright, will add on CTA chest protocol. All studies pending at time of transfer care except for vascular ultrasound which reveals positive DVT in the right common femoral vein, profunda femoral, superficial femoral, popliteal vein. Patient aware of positive DVT finding and the need for transfer to main Emergency Department for shift change/higher level of care. Patient is stable for transfer at this time. 11/16/24, 1900, Kyle. Sign-out from STEFANI Gonzalez. Await CT angiogram chest study. 64-year-old with 2 weeks' duration right leg pain and swelling, ultrasound suspicious for common femoral deep vein thrombosis today, noted to have sinus tachycardia, CT angiogram chest ordered to evaluate for concomitant pulmonary embolus. Assumed care. Ultrasound peripheral venous lower extremity venous Doppler. Impressions: ?DVT in the right lower extremity. No DVT in the left lower extremity.? In the text portion of the right affected side with findings there is further discussion? there is expand saw a partially occlusive thrombus in the right common femoral vein, profunda femoral, superficial femoral, and popliteal vein. Greater saphenous vein is patent. See radiology report. CT angio chest protocol. Impressions: ?No CT evidence of pulmonary embolism to interlobar level. Esophageal findings, can be seen with esophageal reflux disease. ? See radiology report. CT abdomen pelvis with IV contrast. Impressions: ?Re-identified right common femoral vein thrombosis. Moderate fat and bowel containing umbilical hernia without CT evidence of mesenteric ischemia. No other CT abnormality of the abdomen and pelvis.? See radiology report Patient has [email or web address] insurance, we will start Eliquis 5 mg twice daily, initial dose orally given here, prescription for 1 month supply sent to his pharmacy, advised to recheck clinic with his regular provider to reassess symptoms intolerance of medication in the next few days. He was informed that he will likely need at least 3 months of initial therapy if this is his 1st clot problem. Further refills per primary care physician if he is tolerating the therapy. Return precautions discussed. Discharge Plan Departure Patient Disposition: Home Clinical Impression: Deep vein thrombosis of lower extremity Activity Restrictions/Additional Instructions: Mr Soto, Momo had right and left leg pain and swelling symptoms. Ultrasound showed deep vein thrombosis in the right leg, but not in the left leg. You had increased heart rate, concerning for blood clots to the lungs. CT angiogram of the chest was performed to look for that, no blood clots to the lungs were confirmed, no acute chest findings were noted. CT scan of the abdomen and pelvis additionally checked since you had swelling on both sides. There was clot found in the right common femoral vein as noted on the ultrasound study, but no higher up clotting that might affect both sides. Deep veins can break off and cause blood clots to the lungs and other organs. Blood thinning medications or recommended. Eliquis is typically use for this condition, Eliquis 5 mg twice daily, 1 month supply, though you will need treatment for multiple months if this is tolerated. Recheck symptoms in the next couple of days with your regular doctor. Return to this/nearest emergency department for any change worsening symptoms or any concerns prior . Thank you for allowing our team to evaluate you today. Prescriptions: New Eliquis 5 mg tablet 5 mg PO BID Qty: 60 0RF No Action hydrochlorothiazide 25 mg tablet 25 mg PO DAILY venlafaxine 75 mg capsule,extended release 24hr 75 mg PO DAILY lovastatin 40 mg tablet 40 mg PO DAILY olanzapine [Zyprexa] 20 MG tablet 20 mg PO HS Qty: 0 tamsulosin [Flomax] 0.4 mg Capsule 0.4 mg PO DAILY Qty: 30 0RF Referrals: Lulu Zamarripa PA-C [Primary Care Provider] - Stand Alone Forms: Patient Portal/API/Survey
--- NOTE | 2024-11-16 17:23 | DI.US.S_ITS ---
PROCEDURE: US PERIPH VENOUS LOW EXTREM BI INDICATIONS: RLE swelling x 2 weeks; CT AP w/ BL hypodensity common femor TECHNIQUE: Real-time imaging, as well as color and pulse Doppler interrogation, were performed of the deep veins of both legs from the inguinal ligament to the popliteal fossa, with documentation of the visualized calf veins. COMPARISON: None. FINDINGS: Right: There is expansile, partially occlusive thrombus in the right common femoral vein, profunda femoral, superficial femoral, and popliteal vein. Greater saphenous vein is patent. Left: The common femoral, femoral, popliteal, and the visualized calf veins are normally compressible, and free of intraluminal thrombus. Color and pulse Doppler demonstrate normal phasic intravascular flow. There is normal augmentation response to distal compression maneuver. IMPRESSION: DVT in the right lower extremity. No DVT in the left lower extremity. Dictated by: Beulah Matthews M.D. on 11/16/2024 at 18:53 Approved by: Beulah Matthews M.D. on 11/16/2024 at 18:54
--- NOTE | 2024-11-16 17:46 | EKG_ITS ---
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
--- NOTE | 2024-11-16 18:41 | DI.CT.S_ITS ---
PROCEDURE: CT ANGIO CHEST PE PROTOCOL INDICATIONS: right common fem DVT, tachycardia, concern PE TECHNIQUE: After the administration of intravenous contrast, 2 mm thick sections acquired from the pulmonary apices to the posterior costophrenic angles. 3-dimensional maximum intensity projection (MIP) coronal and sagittal reformats were then acquired through the thorax. For radiation dose reduction, the following was used: automated exposure control, adjustment of mA and/or kV according to patient size. COMPARISON: [facility], CT, CT ABDOMEN PELVIS W CON, 11/16/2024, 19:50. FINDINGS: Image quality: Fair; suboptimal pulmonary arterial opacification limits evaluation for pulmonary embolism to the interlobar level. Thyroid: Within normal limits. Cardiac: Heart size within normal limits. No pericardial effusion. RV: LV ratio within normal limits. No bowing of the interventricular septum. No reflux of contrast into the hepatic veins. Aorta: Thoracic aortic diameter within normal limits. Pulmonary Artery: Main pulmonary artery diameter within normal limits. No central filling defect in the pulmonary arteries to the interlobar level. Lungs: No focal lung consolidation. Pleura: No pneumothorax or pleural effusion. Airways: The trachea and mainstem bronchi are patent. Lymph Nodes: No mediastinal, hilar, or axillary lymphadenopathy. Esophagus: Mildly patulous and dilated. Bones: No acute osseous abnormality. Diffuse idiopathic skeletal hyperostosis of the thoracic spine. Upper Abdomen: Please see the same-day CT abdomen pelvis with contrast report for further details. IMPRESSION: 1. No CT evidence of pulmonary embolism to the interlobar level. 2. Esophageal findings, which can be seen with esophageal reflux disease. Dictated by: Ludin Bartlett M.D. on 11/16/2024 at 20:25 Approved by: Ludin Bartlett M.D. on 11/16/2024 at 20:29
[2024-11-16 18:45] LABS: Add Manual Diff / Slide Review NO; Basophils Absolute Auto 100 /uL (0-100); Basophils Percent Auto 0.8 % (0-2); Eosinophils Absolute Auto 400 /uL (0-450); Eosinophils Percent Auto 5.1 % (2-4); Hematocrit 30.8 % (41-53); Hemoglobin 10.4 g/dL (13.5-17.5); Lymphocytes Absolute Auto 1600 /uL (1100-4500); Lymphocytes Percent Auto 20.7 % (25-40); Mean Corpuscular HGB Conc 33.8 % (30-36); Mean Corpuscular Hemoglobin 31.3 PG (26-34); Mean Corpuscular Volume 92.5 fL (80-100); Monocytes Absolute Auto 600 /uL (0-900); Monocytes Percent Auto 7.1 % (3-14); Neutrophils Absolute Auto 5200 /uL (1500-7000); Neutrophils Percent Auto 66.3 % (50-75); Platelet Count 256 X10^3/uL (150-400); Red Blood Cell Count 3.33 X10^6/uL (4.5-5.9); Red Cell Distribution Width 15.5 % (11.6-14.8); White Blood Cell Count 7.8 X10^3/uL (4.5-11.0)
[2024-11-16 18:56] LABS: PTT Partial Thromboplastin Tim 30 SECONDS (25.1-36.5)
[2024-11-16 18:58] LABS: Alanine Aminotransferase 26 IU/L (<50); Albumin 3.6 g/dL (3.5-5.0); Albumin Globulin Ratio 1.2 (1.0-2.8); Alkaline Phosphatase 101 U/L (38-126); Aspartate Aminotransferase 29 IU/L (17-59); Bilirubin Total 0.2 mg/dL (0.2-1.3); Calcium 8.8 mg/dL (8.4-10.2); Carbon Dioxide 28 mmol/L (22-32); Chloride 106 mmol/L (98-107); Creatine Kinase 65 U/L (55-170); Glucose 107 mg/dL (80-110); HEMOLYSIS < 15 (0-50); Potassium 4.4 mmol/L (3.4-5.1); Sodium 138 mmol/L (137-145); Total Protein 6.6 g/dL (6.3-8.2)
[2024-11-16 19:07] LABS: NT-proBNP (BNP-Adult 18+) 100 pg/mL (<125)
[2024-11-16 19:10] LABS: Troponin I < 0.012 ng/mL (0.01-0.034)
[2024-11-16 19:15] LABS: BUN Creatinine Ratio 15.2 (6-22); Blood Urea Nitrogen 19 mg/dL (9-20); Estimated Glomerular Filt Rate > 60 mL/min (>60)
--- NOTE | 2024-11-16 19:44 | DI.CT.S_ITS ---
PROCEDURE: CT ABDOMEN PELVIS W CON INDICATIONS: clot problems, ?pelvic clots too TECHNIQUE: After the administration of intravenous contrast, axial sections acquired from the lung bases to the pubic symphysis. Coronal and sagittal reformats were performed. For radiation dose reduction, the following was used: automated exposure control, adjustment of mA and/or kV according to patient size. COMPARISON: [facility], US, US PERIPH VENOUS LOW EXTREM BI, 11/16/2024, 17:57. [facility], CT, CT IVP, 11/10/2024, 12:18. FINDINGS: Image quality: Diagnostic. Peritoneum: No pneumoperitoneum or ascites. Bones: No acute osseous abnormality. Lower Chest: Please see the same-day CT chest angiogram report for details. Liver: Normal in size and contour. Gallbladder: No stones or pericholecystic fluid. Biliary tree: No intrahepatic or extrahepatic biliary ductal dilatation. Pancreas: Within normal limits. Spleen: Normal in size and contour. Kidneys: No hydronephrosis or obstructive urolithiasis. Bilateral simple renal cysts. Adrenals: No adrenal nodularity. Bladder: Decompressed with a Tyler catheter. : No acute abnormality. Stomach: Normal in size and contour. Bowel: Normal in diameter without any bowel obstruction. Appendix within normal limits (2/102). Lymph Nodes: No retroperitoneal, mesenteric, or inguinal lymphadenopathy. Vascular: No abdominal aortic aneurysm. The visualized arterial vasculature is patent. Right common femoral vein central filling defect (2/150), compatible with the known thrombus Soft Tissues: Moderate umbilical hernia containing fat and loops of distal ileum (2/98), without mesenteric edema. IMPRESSION: 1. Re-identified right common femoral vein thrombosis. 2. Moderate fat and bowel containing umbilical hernia without CT evidence of mesenteric ischemia. 3. No other acute CT abnormality of the abdomen/pelvis. Dictated by: Ludin Bartlett M.D. on 11/16/2024 at 20:29 Approved by: Ludin Bartlett M.D. on 11/16/2024 at 20:35
--- NOTE | 2024-11-16 23:46 | PC.NURSE ---
Dr. Wright in with patient
[2024-11-16] MEDS: APIXABAN 5 MG TABLET PO (23:53)
== END 2024-11-17 00:05 | disposition home or self-care (01) ==
PROVIDERS: Physician Assistant; Emergency Provider Emergency Medicine; PCP Physician Assistant
DX: I82.4Z1 Acute embolism and thrombosis of unspecified deep veins of right distal lower extremity (principal); Z79.01 Long term (current) use of anticoagulants
CPT/HCPCS: 36415; 71275; 74177; 80053; 82550; 83880; 84484; 85025; 85610; 85730; 93005; 93970; 99284; Q9967

== ENCOUNTER 2025-06-28 12:22 | Emergency (ER) | payer MEDICARE, SELFPAY ==
[2024-10-15 04:30] VITALS: BMI 35.9
[2025-06-28 12:34] VITALS: BP 125/77; PULSE 104; RESP 15; TEMP 36.6; O2SAT 95; BMI 34.5
--- NOTE | 2025-06-28 12:49 | ED.RECABL ---
HPI - Recheck/Abnormal Lab/Rx <Tonya Olivares PA-C - Last Filed: 06/28/25 18:28> General Chief Complaint: Recheck/Abnormal Lab/Rx Stated Complaint: PCP sent in creatine over 3 Time Seen by Provider: 06/28/25 12:40 Mode of arrival: Ambulatory History of Present Illness HPI narrative: Mr. 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 Patient states he feels in his normal baseline health, would not have come to the ER if he was not told to. States yesterday he had routine labs drawn revealing a BUN of 44 and a creatinine of 2.78. Patient denies any pain, any fevers, any shortness of breath, chest pain, difficulty with urination, frequency or dysuria. Related Data Home Medications ?Medication ?Instructions ?Recorded ?Confirmed olanzapine 20 mg tablet (Zyprexa) 20 mg PO HS #0 tabs 05/13/16 11/16/24 hydrochlorothiazide 25 mg tablet 25 mg PO DAILY 09/16/24 11/16/24 lovastatin 40 mg tablet 40 mg PO DAILY 09/16/24 11/16/24 venlafaxine 75 mg capsule,extended 75 mg PO DAILY 09/16/24 11/16/24 release 24 hr Previous Rx's ?Medication ?Instructions ?Recorded tamsulosin 0.4 mg capsule (Flomax) 0.4 mg PO DAILY #30 caps 10/18/24 apixaban 5 mg tablet (Eliquis) 5 mg PO BID #60 tabs 11/16/24 Allergies Allergy/AdvReac Type Severity Reaction Status Date / Time morphine (MORPHINE) Allergy Intermediate FACIAL Verified 06/28/25 12:34 BLISTERING, FEVER Review of Systems <Tonya Olivares PA-C - Last Filed: 06/28/25 18:28> Review of Systems ROS Unobtainable: All systems reviewed & are unremarkable except as noted in HPI and below Patient History <Tonya Olivares PA-C - Last Filed: 06/28/25 18:28> Medical History HLD (hyperlipidemia) HTN (hypertension) Schizophrenia Social History household members: none Smoking Status: Unknown if ever smoked alcohol intake: never Smoking Status: Unknown if ever smoked Exam <Tonya Olivares PA-C - Last Filed: 06/28/25 18:28> Narrative Exam Narrative: GENERAL: 65 year old patient appears stated age. Well-developed patient, in no acute distress. HEAD: Atraumatic. Normocephalic. EYES: No scleral icterus. No injection or drainage. NECK: Trachea midline. Cervical ROM intact. CARDIOVASCULAR: Increased rate and regular rhythm. RESPIRATORY: ?Nonlabored respirations. ?Speaking in clear, full sentences. ?Clear to auscultation. Breath sounds equal bilaterally. No wheezes, rales, or rhonchi. ? GASTROINTESTINAL: Abdomen soft, non-tender, nondistended. EXTREMITIES: No LE edema BACK: No CVA tenderness. NEURO: AOx3. ?Clear speech. ?Moves all 4 extremities appropriately. SKIN: No rash or erythema of visible areas Initial Vital Signs Initial Vital Signs: Vital Signs Temperature 97.8 F 06/28/25 12:34 Pulse Rate 104 H 06/28/25 12:34 Respiratory Rate 15 06/28/25 12:34 Blood Pressure 125/77 06/28/25 12:34 Pulse Oximetry 95 06/28/25 12:34 Oxygen Delivery Method Room Air 06/28/25 12:34 <Ondina Dacosta DO - Last Filed: 06/30/25 21:52> Initial Vital Signs Initial Vital Signs: Vital Signs Temperature 97.8 F 06/28/25 12:34 Pulse Rate 104 H 06/28/25 12:34 Respiratory Rate 15 06/28/25 12:34 Blood Pressure 125/77 06/28/25 12:34 Pulse Oximetry 95 06/28/25 12:34 Oxygen Delivery Method Room Air 06/28/25 12:34 Course <Tonya Olivares PA-C - Last Filed: 06/28/25 18:28> Orders Ordered: ED Orders 06/28/25 12:56 CBC Auto Diff [Complete Blood Count AUTO DIFF] Stat CMP [Comprehensive Metabolic Panel] Stat 06/28/25 14:00 Urine Culture Stat Urine Microscopic Stat Vital Signs Vital signs: Vital Signs - 8 hr 06/28/25 12:34 06/28/25 14:30 Temperature 97.8 F Pulse Rate 104 H 80 Respiratory Rate 15 16 Blood Pressure 125/77 132/70 Pulse Oximetry 95 96 Oxygen Delivery Method Room Air Room Air <Ondina Dacosta DO - Last Filed: 06/30/25 21:52> Orders Ordered: ED Orders 06/28/25 12:56 CBC Auto Diff [Complete Blood Count AUTO DIFF] Stat CMP [Comprehensive Metabolic Panel] Stat 06/28/25 14:00 Urine Culture Stat Urine Microscopic Stat Vital Signs Vital signs: Vital Signs - 8 hr 06/28/25 12:34 06/28/25 14:30 Temperature 97.8 F Pulse Rate 104 H 80 Respiratory Rate 15 16 Blood Pressure 125/77 132/70 Pulse Oximetry 95 96 Oxygen Delivery Method Room Air Room Air MDM - Recheck/Abnormal Lab/Rx <Tonya Olivares PA-C - Last Filed: 06/28/25 18:28> Medical Records Attestation: I reviewed the patient's medical records. Medical records narrative: Patient was seen in the hospital in September of this year for acute kidney injury secondary to bladder outlet obstruction. Lab Data 06/28/25 12:56 06/28/25 12:56 Labs: Lab Results 06/28/25 06/28/25 Range/Units 12:56 14:00 WBC 7.6 (4.5-11.0) X10^3/uL RBC 4.71 (4.5-5.9) X10^6/uL Hgb 14.3 (13.5-17.5) g/dL Hct 41.3 (41-53) % MCV 87.9 (80-100) fL MCH 30.3 (26-34) PG MCHC 34.5 (30-36) % RDW 14.4 (11.6-14.8) % Plt Count 291 (150-400) X10^3/uL Neut % (Auto) 67.3 (50-75) % Lymph % (Auto) 22.2 L (25-40) % [place] % (Auto) 8.9 (3-14) % Eos % (Auto) 0.8 L (2-4) % Baso % (Auto) 0.8 (0-2) % Neut # (Auto) 5100 (0246-8029) /uL Lymph # (Auto) 1700 (0281-8434) /uL [place] # (Auto) 700 (0-900) /uL Eos # (Auto) 100 (0-450) /uL Baso # (Auto) 100 (0-100) /uL Sodium 139 (137-145) mmol/L Potassium 4.0 (3.4-5.1) mmol/L Chloride 105 (98-107) mmol/L Carbon Dioxide 23 (22-32) mmol/L BUN 33 H (9-20) mg/dL Creatinine 1.40 H (0.66-1.25) mg/dL Estimated GFR 55 L (>60) mL/min BUN/Creatinine Ratio 23.6 H (6-22) Glucose 100 H (70-99) mg/dL Calcium 9.1 (8.4-10.2) mg/dL Total Bilirubin 0.5 (0.2-1.3) mg/dL AST 40 (17-59) IU/L ALT 35 (<50) IU/L Alkaline Phosphatase 104 (38-126) U/L Total Protein 7.7 (6.3-8.2) g/dL Albumin 4.4 (3.5-5.0) g/dL Globulin 3.3 (1.7-4.1) g/dL Albumin/Globulin Ratio 1.3 (1.0-2.8) Urine RBC 1-5/hpf D (0-5/HPF) Urine WBC 1-5/hpf (0-5/HPF) Ur Squamous Epith Cells 1-5 /hpf (0-5/HPF) Urine Bacteria None seen (None) Ur Culture Indicated? 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 Differential diagnosis includes but isn't limited to NETO, acute on chronic renal failure, bladder outlet obstruction, etc. On exam patient is in no acute distress, nontoxic appearing, vital signs appropriate except for mildly elevated heart rate in triage. Patient states he is having no symptoms, is only here because he was sent by his PCP for elevated creatinine. Patient does have extremely prominent umbilical hernia, states it is unchanged, nonpainful, it is soft. We will repeat labs, obtain urinalysis. Labs today reveal normal WBC count 7.6, hemoglobin 14.3 hematocrit 41.3. CMP reassuring with normal sodium 139 potassium 4.0, significantly improved renal function with a BUN of 33, creatinine 1.4, GFR 55. Glucose 100. Labs yesterday revealed a creatinine of 2.78, down to 1.4 after only 1 day. Suspect acute on chronic renal failure, possibly secondary to some dehydration yesterday from fasting labs. Patient states he was not drinking much water yesterday. He provided urine sample, reports no difficulty with urination, no sensation of retention or dribbling. Urine micro reveals 1-5 RBCs, 1-5 WBCs, 1-5 urine squames, consistent with contamination acute infection however sent for culture, patient will be called if it comes back positive. Discussed with the patient that his lab work improved today, he needs to continue hydrating and see his PCP for medication adjustments. Discouraged use of NSAIDs. Printed and provided him with his lab work to bring to his PCP appointment that is scheduled for 2 days from now. Discussed strict ER return precautions for the development of any symptoms. Patient verbalized understanding all information is happy with the plan ambulatory stable for discharge home. <Ondina Dacosta, DO - Last Filed: 06/30/25 21:52> Lab Data Labs: Lab Results 06/28/25 06/28/25 Range/Units 12:56 14:00 WBC 7.6 (4.5-11.0) X10^3/uL RBC 4.71 (4.5-5.9) X10^6/uL Hgb 14.3 (13.5-17.5) g/dL Hct 41.3 (41-53) % MCV 87.9 (80-100) fL MCH 30.3 (26-34) PG MCHC 34.5 (30-36) % RDW 14.4 (11.6-14.8) % Plt Count 291 (150-400) X10^3/uL Neut % (Auto) 67.3 (50-75) % Lymph % (Auto) 22.2 L (25-40) % [place] % (Auto) 8.9 (3-14) % Eos % (Auto) 0.8 L (2-4) % Baso % (Auto) 0.8 (0-2) % Neut # (Auto) 5100 (2718-9409) /uL Lymph # (Auto) 1700 (9568-2827) /uL [place] # (Auto) 700 (0-900) /uL Eos # (Auto) 100 (0-450) /uL Baso # (Auto) 100 (0-100) /uL Sodium 139 (137-145) mmol/L Potassium 4.0 (3.4-5.1) mmol/L Chloride 105 (98-107) mmol/L Carbon Dioxide 23 (22-32) mmol/L BUN 33 H (9-20) mg/dL Creatinine 1.40 H (0.66-1.25) mg/dL Estimated GFR 55 L (>60) mL/min BUN/Creatinine Ratio 23.6 H (6-22) Glucose 100 H (70-99) mg/dL Calcium 9.1 (8.4-10.2) mg/dL Total Bilirubin 0.5 (0.2-1.3) mg/dL AST 40 (17-59) IU/L ALT 35 (<50) IU/L Alkaline Phosphatase 104 (38-126) U/L Total Protein 7.7 (6.3-8.2) g/dL Albumin 4.4 (3.5-5.0) g/dL Globulin 3.3 (1.7-4.1) g/dL Albumin/Globulin Ratio 1.3 (1.0-2.8) Urine RBC 1-5/hpf D (0-5/HPF) Urine WBC 1-5/hpf (0-5/HPF) Ur Squamous Epith Cells 1-5 /hpf (0-5/HPF) Urine Bacteria None seen (None) Ur Culture Indicated? Specimen cultured Vol Urine Centrifuged 10ml (spun) Urine Dip Bedside Urine Glucose Negative Bedside Urine Bilirubin - Negative Bedside Urine Ketone - Negative Urine Specific [place] 1.025 Bedside Urine Occult Blood +/- Bedside Urine pH 6.0 Bedside Urine Protein + 30 Bedside Urine Urobilinogen - Negative Bedside Urine Nitrite - Negative Bedside Urine Leukocytes - Negative Esterase Discharge Plan Departure Patient Disposition: Home Clinical Impression: Acute on chronic renal insufficiency Instructions: Chronic Kidney Disease Activity Restrictions/Additional Instructions: Dear Mr. Soto, Thank you for coming to the emergency department. Today you were sent here for outpatient labs revealing a creatinine of almost 3. Your repeat labs today were very reassuring with a creatinine of 1.4. Your levels are still not completely normal and you need to discuss chronic kidney disease with your primary care doctor. As we discussed, it is important that you are drinking water every day to prevent dehydration. Please return to the ER immediately if you develop any symptoms of pain, fevers, difficulty urinating or other concerns. Please follow up with your primary care doctor within the next 2-3 days for ER follow-up. (If you do not have a PCP you can call [phone]. ?to schedule an appointment with an [facility] Primary Care Provider) IF YOU DEVELOP ANY NEW OR WORSENING SYMPTOMS, RETURN TO THE ER! Please read the attached instructions, they highlight more specific treatments and interventions for you at home. Thank you for letting me participate in your care, Tonya Olivares PA-C Prescriptions: No Action hydrochlorothiazide 25 mg tablet 25 mg PO DAILY venlafaxine 75 mg capsule,extended release 24hr 75 mg PO DAILY lovastatin 40 mg tablet 40 mg PO DAILY olanzapine [Zyprexa] 20 MG tablet 20 mg PO HS Qty: 0 tamsulosin [Flomax] 0.4 mg Capsule 0.4 mg PO DAILY Qty: 30 0RF Eliquis 5 mg tablet 5 mg PO BID Qty: 60 0RF Referrals: Lulu Zamarripa PA-C [Primary Care Provider, Medical] Stand Alone Forms: Patient Portal/API ED Sign-out <Ondina Dacosta, - Last Filed: 06/30/25 21:52> Cosign ED Attending Natalie Attestation: I was immediately available in the department for consultation.
[2025-06-28 13:00] LABS: Add Manual Diff / Slide Review NO; Hematocrit 41.3 % (41-53); Hemoglobin 14.3 g/dL (13.5-17.5); Lymphocytes Absolute Auto 1700 /uL (1100-4500); Mean Corpuscular HGB Conc 34.5 % (30-36); Mean Corpuscular Hemoglobin 30.3 PG (26-34); Mean Corpuscular Volume 87.9 fL (80-100); Platelet Count 291 X10^3/uL (150-400)
[2025-06-28 13:13] LABS: Alanine Aminotransferase 35 IU/L (<50); Albumin 4.4 g/dL (3.5-5.0); Albumin Globulin Ratio 1.3 (1.0-2.8); Alkaline Phosphatase 104 U/L (38-126); Blood Urea Nitrogen 33 mg/dL (9-20); Calcium 9.1 mg/dL (8.4-10.2); Carbon Dioxide 23 mmol/L (22-32); Chloride 105 mmol/L (98-107); Estimated Glomerular Filt Rate 55 mL/min (>60); Globulin 3.3 g/dL (1.7-4.1); Glucose 100 mg/dL (70-99); HEMOLYSIS < 15 (0-50); Potassium 4.0 mmol/L (3.4-5.1); Sodium 139 mmol/L (137-145); Total Protein 7.7 g/dL (6.3-8.2)
[2025-06-28 14:06] LABS: Culture Indicated Urine Specimen Cultured
[2025-06-28 14:30] VITALS: BP 132/70; PULSE 80; RESP 16; O2SAT 96
== END 2025-06-28 14:27 | disposition home or self-care (01) ==
PROVIDERS: Emergency Medicine; Emergency Provider Physician Assistant; PCP Physician Assistant
DX: N28.9 Disorder of kidney and ureter, unspecified (principal)
CPT/HCPCS: 36415; 80053; 81003; 81015; 85025; 87086; 99282; 99283